=== PATIENT | female | born 1960 | race Caucasian/White ===

== ENCOUNTER 2019-04-04 06:30 | Inpatient (IN) | payer BC ==
--- NOTE | 2019-03-31 14:43 | PREOPHP ---
DATE OF ADMISSION: 04/04/2019 REASON FOR CONSULTATION: Consultation requested by Dr. Jessie Montelongo for medical evaluation and patel giovany of a 59-year-old woman about to undergo surgery. Thank you, Dr. Montelongo, for participating and allowing us to participate in the care of our patient. HISTORY OF PRESENT ILLNESS: Pamella Leyva a 59-year-old woman, issues with her back and right hip is c urrently being admitted for correction of her right hip problem. In terms of her past medical and sanchez rgical history, she has had no medical hospitalizations to speak of in the past, has had the followin g surgical procedures, carpal tunnel release on the right many years ago, cyst removal. Also had D a nd C and more recently had a hysteroscopy and D and C, had gastric band placed laparoscopically, had laparoscopic surgery for endometriosis and excision of a lipoma and had a knee surgery and reconstruc tion of the left knee and had a tonsillectomy many years ago. ALLERGIES: SHE IS CURRENTLY ALLERGIC TO: 1. SULFA. 2. PENICILLIN. 3. KEFLEX. 4. CECLOR. MEDICATIONS: Include the followin. Levothyroxine 150 mcg daily in the morning. 2. Doxycycline 100 mg daily q.a.m. 3. Duloxetine 30 mg 3 daily 2:00 a.m., 1:00 p.m. 4. Metformin 500 mg 1 b.i.d. 5. Spironolactone 50 mg b.i.d. 6. Alprazolam XR 1 mg b.i.d. 7. Lyrica 50 mg t.i.d. 8. Montelukast 10 mg at bedtime. 9. Benazepril 20 mg at bedtime. 10. Alprazolam 0.5 mg 1 to 2 p.o. b.i.d. p.r.n. 11. Desipramine 20 mg at bedtime. 12. Mucinex XR 1200 mg 2 a day. 13. Zyrtec 10 mg 1 to 2 a day. 14. ProAir inhaler as needed. 15. Hydrocodone. 16. Rizatriptan 10 mg p.r.n. SOCIAL HISTORY: The patient is single, has no children. She does not smoke or drink alcohol or coff ee and has no difficulty sleeping at night. FAMILY HISTORY: Father of Parkinson's disease in his 70s. Mother is 83, has had thyroid cancer , other than that has been relatively healthy. Two sisters are in good health. There is a family hi story of diabetes and heart, as well as cancer and hypertension with history of strokes and Parkinson 's disease as mentioned above. REVIEW OF SYSTEMS HEENT: Periodic headache, tension and sinus and migraine. CARDIORESPIRATORY: Denies any chest pain or shortness of breath. GASTROINTESTINAL: No melena or hematemesis. Does have irritable bowel syndrome. GENITOURINARY: No urgency or frequency. GYNECOLOGIC: Postmenopause. Up to date. MUSCULOSKELETAL: Positive for right hip pain. NEUROPSYCHIATRIC: Unremarkable. GENERAL HEALTH: As above. PHYSICAL EXAMINATION: VITAL SIGNS: The patient's blood pressure was 130/62, pulse was 76 and regular, respirations were 18 , temperature was 98.3, height 5 feet 3.75 inches and weight 216 pounds. Last weight obtained on [facility] ie this month in March was 204 pounds. GENERAL: The patient was noted to be a well-developed, well-nourished female, alert and cooperative, in no apparent acute distress, oriented to time, place, and person. HEAD, EARS, EYES, NOSE AND THROAT: Head was atraumatic. Eyes: Pupils were equal, reacted to light and accommodation. Fundi were benign. Tympanic membranes were unremarkable. Nose was negative. Mo uth was unremarkable. Fair oral hygiene was present. NECK: Supple without any rigidity. Trachea was midline. Thyroid was within normal limits. A small scar was noted in the anterior cervical area. BACK: Unremarkable. CHEST: Symmetrical. BREASTS AND AXILLARY: Did not reveal any obvious masses. LUNGS: Clear. HEART: Examination of the heart. PMI is fifth intercostal space at the midclavicular line. A regul ar sinus rhythm was noted. No significant murmurs, rubs, or gallops being elicited. ABDOMEN: Soft, good bowel sounds were noted. Area of a lap band on the left side was palpable. No significant organomegaly, masses, or tenderness. GENITALIA AND PELVIRECTAL: Up to date per wax pumper. EXTREMITIES: Did not reveal any clubbing, edema or cyanosis. Limitation of motion was noted on the right hip. Peripheral pulses were physiologic. SKIN: Moist and warm without any eruptions. No gross lymphadenopathy was noted. NEUROLOGIC: Grossly intact. IMPRESSION: 1. Right hip and buttock pain. 2. Lumbar disk disease. 3. Hypothyroidism. 4. Lumbar disk disease. 5. Degenerative joint disease. 6. Metabolic syndrome. 7. Chronic pain syndrome. 8. Stable health. LABORATORY DATA: Review of laboratory and other data revealed the following: The patient's chemistr y panel including electrolytes, glucose, BUN, creatinine, calcium and uric acid, protein, liver funct ion tests, serum iron, hemoglobin A1c were normal. CBC, UA, PT and PTT were normal as well. The pat ient's EKG revealed a sinus tachycardia but other than that was normal and the patient's chest x-ray did not reveal any acute infiltrates nor were there any acute cardiopulmonary changes noted. DISCUSSION: Dr. Montelongo, I see no contraindications to patient undergoing current proposed surgery u nder desired form of anesthesia. I feel she is a suitable candidate at this particular point in time and we will be more than happy to follow her along with you during her stay at [facility]. Thank you again, Dr. Montelongo, for allowing us to participate in care of this patient. Dictated By: MOIRA GRANADOS MD SS/NTS Conf#: [id number] DID#: [id number] CC: JESSIE MONTELONGO MD;*End*
[2019-04-01 16:54] VITALS: Ht 160.7 cm; Wt 94.0 kg
[~2019-04-04] VITALS: Ht 160.7 cm; Wt 94.0 kg
[2019-04-04] VITALS (24 sets, daily range): BP systolic 93–109; BP diastolic 52–70; PULSE 86–110; RESP 15–21
--- NOTE | 2019-04-04 05:59 | HPN ---
Date/Time of Note Date/Time of Note DATE: 04/04/19 TIME: 05:58 Interval H&P Admission Note Pt. seen H&P reviewed: No system changes JESSIE ALLEN MD Apr 04, 2019 05:59
--- NOTE | 2019-04-04 06:00 | OPR ---
Date/Time of Note Date/Time of Note DATE: 04/04/19 TIME: 05:59 Operative Report Procedure Date: Apr 04, 2019 Preoperative Diagnosis Right hip abductor tear Postoperative Diagnosis 1. Right hip massive gluteus medius tear 2. Right hip severe trochanteric bursitis Operation/Procedure Performed 1. Right hip open gluteus medius repair 2. Right hip open trochanteric bursectomy Surgeon see signature line Transmission Systems Operator Wilbert Higgins PA-C Anesthesia Type: general Estimated Blood Loss: 50 - 100 ml's Transfusion none Specimen None Grafts/Implants See op note Complications none Pt Condition Post Procedure: stable Disposition: PACU Procedure Description RESPIRATORY CARE PRACTITIONER SURGEON: Wilbert Higgins PA-C was asked to be present at my request as a result of the complexity associated with this procedure including positioning of the extremity, as well as exposure of the neurovascular structures and protection of those structures. In my opinion, the assistance offered by a medical surgical tech is insufficient and he should be compensated for his time. PROCEDURE IN DETAIL: Following the administration of general endotracheal anesthesia supplemented with a local anesthetic, the patient was then placed in the left lateral decubitus position after carefully turning her. An axillary fold was placed. Sterile prep and drape was then undertaken. A lateral incision was then made over the trochanteric prominence of the right hip directly over the prior incision. The incision was carried through the subcutaneous tissues exposing the iliotibial band, which appeared to be chronically torn and retracted. The IT band was then i mobilized up to the area of the tensor femoris and up to the area proximally at the origin. A severe amount of bursal reactive tissue was then excised and a tear of the gluteus medius with a complete avulsion was noted. A thorough bursectomy was completed with severe bursal reactive tissue being excised. Once the bursectomy was completed, the lateral aspect of the trochanter was then cleared of soft tissue and a bleeding bed was established. Several lateral and posterior osteophytes were removed. The abductor mechanism was investigated. The gluteus minimus appeared to be attached with some mild fraying. However, the medius was completely torn and retracted. The tissue was mobilized and a good amount of solid tissue was noted with a good tendinous edge. A decision was then made to perform a primary repair. At this point two 5.5 mm, double loaded titanium anchors were then impacted into the tuberosity. The sutures were then passed in a mattress fashion through the abductor musculature. This incorporated both the gluteus minimus and gluteus medius tendons. In addition, portion of the gluteus marco a was mobilized anteriorly in order to give it a good vascular bed. The abductor was then reapproximated solidly. The iliotibial band was also closed. This was done using the prior sutures from the suture anchors and tied in a [id number] fashion. The wound was thoroughly irrigated. The wound was then closed in layers and a Prenio for the final cover. This was watertight. Estimated blood loss was procedure was 50 cc. JESSIE ALLEN MD Apr 04, 2019 06:00
[~2019-04-04 06:30] MED LIST: ALBU8.5H8 INH; ALPR0.5T6 PO; BENA20TA4 PO; BUPIVACAINE 0.5% (SDV) 30 ML, morphine SULFATE (PF) 8 MG, EPINEPHrine 0.3 MG, KETOROLAC... IRR SCH; CETI10CA PO; DESI50TA PO; DEXAMETHASONE 1 MG TAB PO ONE; DOXYCYCLINE PO; DULO60CA59 PO; GABAPENTIN 300 MG CAP PO ONE; GUAI120011 PO; LEVO150T87 PO; METF500T24 PO; MONT10TA24 PO; PREG50CA PO; RIZA10TA21 PO; SOD CHLORIDE 0.9% 100 ML, TRANEXAMIC ACID 3,000 MG IRR ONE; SPIR100T4 PO; TRANEXAMIC ACID 1GM/100ML(PMX) 100 ML IVPB ONE; VANCOMYCIN 1 GM (PMX) 250 ML IVPB ONE; [UNRECOGNIZED DRUG - CODE] PO
[2019-04-04] MEDS ORDERED: PHENYLephrine (100 MCG/ML) 10ML SYG ONE (07:00)
--- NOTE | 2019-04-04 08:27 | PREAC ---
Date/Time of Note Date/Time of Note DATE: 04/04/19 TIME: 08:24 Anesthesia Eval and Record Evaluation Time Pre-Procedure Interview DATE: 04/04/19 TIME: 08:24 Age 59 Sex female NPO: 8 hrs Preoperative diagnosis Right Hip Pain Planned procedure Right Hip open Trochateric Bursectomy Past Medical History Past Medical History: Includes Cardio: HTN, Dyslipidemia Endo: Diabetes, Hypothyroid Pulm: Asthma Musculoskeletal: Osteoarthritis Surgery & Anesthesia Issues No known issue Meds Anticoagulation: No Beta Susan within 24 hr: No Reason Beta Susan not given: Pt. not on B-Susan Reported Medications Rizatriptan Benzoate (Rizatriptan Benzoate) 10 Mg Tablet, 10 MG PO BID PRN for MIGRAINE, TAB may repeat after 2 hours, MAX 30 mg/24 hour 04/01/19 Albuterol Sulfate* (Proair HFA*) 8.5 Gm Hfa.aer.ad, 2 PUFF INH Q4, #1 INHALER 04/01/19 Cetirizine Hcl* (Zyrtec*) 10 Mg Capsule, 10 MG PO BID, TAB 04/01/19 Guaifenesin (Mucinex) 1,200 Mg Tab.er.12h, 1200 MG PO BID, TAB 04/01/19 Desipramine Hcl* (Desipramine Hcl*) 50 Mg Tablet, 20 MG PO HS, TAB 04/01/19 Alprazolam* (Alprazolam*) 0.5 Mg Tablet, 0.5 MG PO BID, TAB 04/01/19 Benazepril Hcl* (Benazepril Hcl*) 20 Mg Tablet, 20 MG PO DAILY, #30 TAB 04/01/19 Montelukast Sodium* (Montelukast Sodium*) 10 Mg Tablet, 10 MG PO QHS, #30 TAB 04/01/19 Pregabalin* (Lyrica*) 50 Mg Capsule, 50 MG PO QID, CAP 04/01/19 Alprazolam (Alprazolam XR) 1 Mg Tab.sr.24h, 1 MG PO BID, TAB.SA 04/01/19 Spironolactone* (Spironolactone*) 100 Mg Tablet, 50 MG PO BID, TAB 04/01/19 Metformin Hcl* (Metformin Hcl*) 500 Mg Tablet, 500 MG PO WITH BREAKFAST PRN for BID, #30 TAB 04/01/19 Duloxetine Hcl* (Duloxetine Hcl*) 60 Mg Capsule.dr, 90 MG PO DAILY, #30 CAP 04/01/19 [Doxycycline] No Conflict Check, 100 MG PO DAILY 04/01/19 Levothyroxine Sodium* (Synthroid*) 150 Mcg Tablet, 150 MCG PO BEFORE BREAKFAST, #30 TAB 04/01/19 Current Medications Bupivacaine HCl/ Morphine Sulfate/ Epinephrine/ Ketorolac Tromethamine/ Clonidine/Sodium Chloride/ Vancomycin HCl INTRA-OP IRR ; Start 04/04/19 at 05:30 Meds reviewed: Yes Allergies Coded Allergies: Cephalexin Monohydrate (Verified Allergy, Intermediate, RASH, 04/04/19) Cephalosporins (Verified Allergy, Intermediate, RASH, 04/04/19) Sulfa (Sulfonamide Antibiotics) (Verified Allergy, Intermediate, RASH, 04/04/19) cefaclor (Verified Allergy, Intermediate, RASH, 04/04/19) Penicillins (Verified Allergy, Unknown, RASH, 04/04/19) acetaminophen (Verified Allergy, Unknown, INTOLERANCE, 04/04/19) hydromorphone HCl (Verified Allergy, Unknown, INTOLERANCE, 04/04/19) oxycodone HCl (Verified Allergy, Unknown, INTOLERANCE, 04/04/19) Allergies Reviewed: Yes Labs/Studies Labs Reviewed: Reviewed by anesthesiologist test: N/A Studies: ECG (ST), CXR (WNL) Pre-procedure Exam Airway: Adequate mouth opening, Adequate thyromental dist Mallampati: Mallampati II Teeth: Normal Lung: Normal Heart: Normal ASA Physical Status ASA physical status: 3 Emergency: None Planned Anesthetic General/MAC: ETT Planned Pain Management Parenteral pain med Pre-operative Attestations Prior to commencing anesthesia and surgery, the patient was re-evaluated, there was verification of: *The patient's identity *The results of appropriate recent lab work and preoperative vital signs *The above evaluation not changing prior to induction *Anesthetic plan, risk benefits, alternative and complications discussed with patient/family; questions answered; patient/family understands, accepts and wishes to proceed. RUTH EWING MD Apr 04, 2019 08:27
[2019-04-04] MEDS ORDERED: METF500T24 PO (08:28)
[2019-04-04] MEDS ORDERED: BENA20TA4 PO (08:28)
[2019-04-04] MEDS ORDERED: DOXY100T20 PO (08:30)
[2019-04-04] MEDS ORDERED: SPIR50TA PO (08:30)
[2019-04-04] MEDS ORDERED: ROCURONIUM 50 MG INJ ONE (08:36)
[2019-04-04] MEDS ORDERED: MIDAZOLAM 1 MG/ML 2 ML INJ ONE (08:36)
[2019-04-04] MEDS ORDERED: PROPOFOL 20 ML ONE ×2 (08:36→11:31)
[2019-04-04] MEDS ORDERED: FENTAnyl 50 MCG/ML VIAL ONE (08:36)
[2019-04-04] MEDS ORDERED: METOCLOPRAMIDE 10 MG INJ IV PRN (09:00)
[2019-04-04] MEDS ORDERED: MEPERIDINE 25 MG INJ IV PRN ×2 (09:00→12:30)
[2019-04-04] MEDS ORDERED: DIPHENHYDRAMINE 50 MG INJ IV PRN ×3 (09:00→12:30)
[2019-04-04] MEDS ORDERED: EPHEDrine 25 MG/5 ML SYG IV PRN (09:00)
[2019-04-04] MEDS ORDERED: ONDANSETRON 4 MG INJ IV PRN (09:00)
[2019-04-04] MEDS ORDERED: hydrALAzine 20 MG INJ IV PRN (09:00)
[2019-04-04] MEDS ORDERED: LABETALOL HCL 20MG INJ IV PRN (09:00)
[2019-04-04] MEDS ORDERED: FENTAnyl 50 MCG/ML VIAL IV PRN ×2 (09:00)
[2019-04-04] MEDS ORDERED: ONDANSETRON 4 MG INJ ONE ×2 (11:01→11:58)
[2019-04-04] MEDS ORDERED: FAMOTIDINE 20 MG INJ ONE (11:01)
[2019-04-04] MEDS ORDERED: METOCLOPRAMIDE 10 MG INJ ONE (11:01)
[2019-04-04] MEDS ORDERED: DEXAMETHASONE 4 MG/ML 5 ML INJ ONE (11:01)
[2019-04-04] MEDS ORDERED: POLYMYXIN/BACITRACIN 1L IRRIG IRR ONE (11:13)
[2019-04-04] MEDS ORDERED: SUGAMMADEX SODIUM 200 MG/2 ML VIAL IV ONE (11:31)
[2019-04-04] MEDS ORDERED: KETOROLAC 30 MG INJ ONE (11:31)
[2019-04-04] MEDS ORDERED: MAGNESIUM HYDROXIDE 30ML CUP PO PRN (12:00)
[2019-04-04] MEDS ORDERED: RIZATRIPTAN BENZOATE 10 MG PO PRN (12:00)
[2019-04-04] MEDS ORDERED: NACL 0.9% 3 ML SYG IV SCH (12:00)
[2019-04-04] MEDS ORDERED: HYDROmorphONE 1 MG/ML SYG IV PRN (12:00)
[2019-04-04] MEDS ORDERED: oxyCODONE 5 MG TAB PO PRN (12:00)
[2019-04-04] MEDS: FENTAnyl 50 MCG/ML VIAL IV PRN ×2 (12:13→12:24)
[2019-04-04] MEDS ORDERED: LORAZEPAM 2 MG INJ IV PRN (12:30)
[2019-04-04] MEDS: ALBUTEROL HFA 8 GM INHALER INH SCH ×3 (13:00→21:00)
[2019-04-04] MEDS ORDERED: GLUCOSE GEL 15 GRAM TUBE PO PRN ×4 (13:00→13:30)
[2019-04-04] MEDS ORDERED: GLUCAGON 1 MG INJ IM PRN ×2 (13:00→13:30)
[2019-04-04] MEDS ORDERED: GLUCOSE GEL 15 GRAM TUBE BUCCAL PRN ×2 (13:00→13:30)
[2019-04-04] MEDS ORDERED: PREGABALIN 25 MG CAP PO SCH (13:00)
[2019-04-04] MEDS ORDERED: DEXTROSE 50% 50 ML SYRINGE IV PRN ×4 (13:00→13:30)
[2019-04-04] MEDS: LACTATED RINGER'S 1,000 ML IV SCH ×2 (13:06→21:34)
[2019-04-04] MEDS: DEXAMETHASONE 2 MG TAB PO SCH ×2 (13:43→18:30)
[2019-04-04] MEDS: ONDANSETRON 4 MG INJ IV PRN ×2 (14:04→20:05)
[2019-04-04] MEDS: morphine 4 MG/ML VIAL IV PRN ×2 (14:05→19:38)
--- NOTE | 2019-04-04 14:20 | PDOCDIS ---
Discharge Instructions DIAGNOSIS Discharge Diagnosis Abductor tear CONDITION [id number] Patient Condition: Ganor5t Good HOME CARE INSTRUCTIONS: [id number] Diet Instructions: [id number] Regular ACTIVITY: [id number] Activity Restrictions: [id number] Slowly Increase Activity Keep Limb Elevated [id number] Bathing Restrictions: [id number] Shower FOLLOW UP/APPOINTMENTS Follow-up Plan 2 weeks in the office SCHOOL/WORK RELEASE May return to School/Work with: With Restrictions School/Work Release Comment: Foot flat weightbearing for 4 weeks JESSIE ALLEN MD Apr 04, 2019 14:20
--- NOTE | 2019-04-04 15:26 | CONS ---
Assessment/Plan Assessment/Plan Problems: (1) Hidradenitis suppurativa Status: Chronic Comment: Cont. metformin, spironolactone, doxycycline (2) Androgen excess Status: Chronic Comment: Cont. metformin, doxycycline (3) Hypercoagulable state Status: Chronic Comment: heme to evaluate and decide if any anticoagulation is necessary (4) Hypothyroidism Status: Chronic Comment: Cont. LT4 daily (5) Major depressive disorder, recurrent, in full remission Status: Chronic Comment: Cont. duloxetine, desipramine (6) Anxiety disorder Status: Chronic Comment: Cont. long acting alprazolam w/ short-acting alprazolam prn (7) Allergic rhinitis Status: Chronic Comment: Cont. montelukast, cetirizine, mucinex (8) Essential (primary) hypertension Status: Chronic Comment: cont. benazepril (9) Mild intermittent asthma, uncomplicated Status: Chronic Comment: Cont. montelukast, albuterol prn (10) Low back pain Status: Chronic Comment: Cont. lyrica 50 mg po qid (11) Tear of gluteus medius tendon Status: Resolved Comment: per primary team (12) Trochanteric bursitis of right hip Status: Resolved Comment: per primary team (13) Aftercare following surgery of the musculoskeletal system Status: Acute Comment: Doing well POD#0. Defer to primary team for pain management and PT. Will cont. home meds as above and monitor for any subsequent medical problems and treat should they arise. Will cont. to follow w/ you. Consultation Date/Type/Reason Admit Date/Time Apr 04, 2019 at 06:30 Date of Consultation: Apr 04, 2019 Type of Consult Medicine Reason for Consultation Medical Management Requesting Provider: JESSIE ALLEN MD Date/Time of Note DATE: 04/04/19 TIME: 15:14 Hx of Present Illness 59 y/o C F w/ h/o hypothyroidism, hidradenitis suppurativa/androgen excess, anxiety, depression, allergic rhinitis, asthma, HTN, lumbar disease in [facility] until 1 1/2 y. ago when she stepped on a rubber dog toy and slipped and fell landing on R hip. Has had pain in hip and radiating down leg since then. Sought care of Dr. Allen who took her for scheduled gluteus medius repair and trochanteric bursectomy today. POD#0 and feels well. Constitutional: no complaints, improved Eyes: no complaints ENT: no complaints Respiratory: no complaints Cardiovascular: no complaints Gastrointestinal: no complaints Genitourinary: no complaints Musculoskeletal: no complaints (on morphine and pain-free at this time) Neurologic: no complaints Past Medical History Medical History: hypertension, hypothyroid, other (hidradenitis suppurativa/androgen excess, anxiety, depression, allergic rhinitis, lumbar disease) Home Meds Reported Medications Doxycycline Hyclate* (Doxycycline Hyclate*) 100 Mg Tablet.dr, 100 MG PO DAILY, TAB 04/04/19 Spironolactone* (Aldactone*) 50 Mg Tablet, 50 MG PO BID, #60 TAB 04/04/19 Metformin Hcl* (Metformin Hcl*) 500 Mg Tablet, 500 MG PO WITH BREAKFAST DINNE, #60 TAB 04/04/19 Benazepril Hcl* (Benazepril Hcl*) 20 Mg Tablet, 20 MG PO QHS, #60 TAB 04/04/19 Rizatriptan Benzoate (Rizatriptan Benzoate) 10 Mg Tablet, 10 MG PO BID PRN for MIGRAINE, TAB may repeat after 2 hours, MAX 30 mg/24 hour 04/01/19 Albuterol Sulfate* (Proair HFA*) 8.5 Gm Hfa.aer.ad, 2 PUFF INH Q4, #1 INHALER 04/01/19 Cetirizine Hcl* (Zyrtec*) 10 Mg Capsule, 10 MG PO BID, TAB 04/01/19 Guaifenesin (Mucinex) 1,200 Mg Tab.er.12h, 1200 MG PO BID, TAB 04/01/19 Desipramine Hcl* (Desipramine Hcl*) 50 Mg Tablet, 20 MG PO HS, TAB 04/01/19 Alprazolam* (Alprazolam*) 0.5 Mg Tablet, 0.5 MG PO BID, TAB 04/01/19 Montelukast Sodium* (Montelukast Sodium*) 10 Mg Tablet, 10 MG PO QHS, #30 TAB 04/01/19 Pregabalin* (Lyrica*) 50 Mg Capsule, 50 MG PO QID, CAP 04/01/19 Alprazolam (Alprazolam XR) 1 Mg Tab.sr.24h, 1 MG PO BID, TAB.SA 04/01/19 Duloxetine Hcl* (Duloxetine Hcl*) 60 Mg Capsule.dr, 90 MG PO DAILY, #30 CAP 04/01/19 Levothyroxine Sodium* (Synthroid*) 150 Mcg Tablet, 150 MCG PO BEFORE BREAKFAST, #30 TAB 04/01/19 Discontinued Reported Medications Benazepril Hcl* (Benazepril Hcl*) 20 Mg Tablet, 20 MG PO DAILY, #30 TAB 04/01/19 Spironolactone* (Spironolactone*) 100 Mg Tablet, 50 MG PO BID, TAB 04/01/19 Metformin Hcl* (Metformin Hcl*) 500 Mg Tablet, 500 MG PO WITH BREAKFAST PRN for BID, #30 TAB 04/01/19 [Doxycycline] No Conflict Check, 100 MG PO DAILY 04/01/19 Medications Current Medications Albuterol (Ventolin Hfa) 2 puff Q4 INH ; Start 04/04/19 at 13:00 Alprazolam (Xanax) 0.5 mg BID PO ; Start 04/04/19 at 21:00 Benazepril HCl (Lotensin) 20 mg QHS PO ; Start 04/04/19 at 21:00 Desipramine HCl (Norpramin) 10 mg HS PO ; Start 04/04/19 at 21:00 Duloxetine HCl (Cymbalta) 90 mg DAILY PO ; Start 04/05/19 at 09:00 Levothyroxine Sodium (Synthroid) 150 mcg BEFORE BREAKFAST PO ; Start 04/05/19 at 07:00 Metformin HCl (Glucophage) 500 mg WITH BREAKFAST DINNE PO ; Start 04/04/19 at 17:55 Montelukast Sodium (Singulair) 10 mg QHS PO ; Start 04/04/19 at 21:00 Spironolactone (Aldactone) 50 mg BID PO ; Start 04/04/19 at 21:00 Loratadine (Claritin) 10 mg DAILY PO ; Start 04/05/19 at 09:00 Guaifenesin (Mucinex) 1,200 mg BID PO ; Start 04/04/19 at 21:00 Miscellaneous Information 10 mg BID PRN PO MIGRAINE; Start 04/04/19 at 12:00; Status UNV Lactated Ringer's 1,000 ml @ 100 mls/hr Q10H IV Last administered on 04/04/19at 13:06; Admin Dose 100 MLS/HR; Start 04/04/19 at 11:34 Vancomycin HCl 100 ml @ 100 mls/hr Q12H IVPB ; Start 04/04/19 at 20:00; Stop 04/05/19 at 08:59 Senna/Docusate Sodium (Senokot-S) 1 tab BID PO ; Start 04/04/19 at 21:00 Simethicone (Mylicon) 80 mg TID PRN PO .GAS; Start 04/04/19 at 12:00 Magnesium Hydroxide (Milk Of Mag) 30 ml BID PRN PO .CONSTIPATION; Start 04/04/19 at 12:00 Magnesium Hydroxide (Milk Of Mag) 30 ml HS PO ; Start 04/06/19 at 21:00 Dexamethasone (Decadron) 2 mg Q6 PO Last administered on 04/04/19at 13:43; Admin Dose 2 MG; Start 04/04/19 at 12:00; Stop 04/05/19 at 06:01 Oxycodone HCl (Roxicodone) 15 mg Q4H PRN PO .PAIN; Start 04/04/19 at 12:00 Oxycodone HCl (Roxicodone) 10 mg Q4H PRN PO .PAIN; Start 04/04/19 at 12:00 Oxycodone HCl (Roxicodone) 5 mg Q4H PRN PO .PAIN; Start 04/04/19 at 12:00 Hydromorphone HCl (Dilaudid) 1 mg Q4H PRN IV .BREAKTHROUGH PAIN; Start 04/04/19 at 12:00 Ondansetron HCl (Zofran Inj) 4 mg Q6H PRN IV NAUSEA/VOMITING Last administered on 04/04/19at 14:04; Admin Dose 4 MG; Start 04/04/19 at 12:00 Diphenhydramine HCl (Benadryl) 25 mg Q6H PRN IV .PRURITUS; Start 04/04/19 at 12:00 IV Flush (NS 3 ml) 3 ml per protocol IV ; Start 04/04/19 at 12:00 Aspirin (Ecotrin) 325 mg DAILY PO ; Start 04/05/19 at 09:00 Lorazepam (Ativan) 1 mg PACU ORDER PRN IV .ANXIETY; Start 04/04/19 at 12:30; Stop 04/04/19 at 16:30 Miscellaneous Information 1 ea NOTE XX ; Start 04/04/19 at 13:00 Glucose (Glutose) 15 gm Q15M PRN PO DECREASED GLUCOSE; Start 04/04/19 at 13:00 Glucose (Glutose) 22.5 gm Q15M PRN PO DECREASED GLUCOSE; Start 04/04/19 at 13:00 Dextrose (D50w Syringe) 25 ml Q15M PRN IV DECREASED GLUCOSE; Start 04/04/19 at 13:00 Dextrose (D50w Syringe) 50 ml Q15M PRN IV DECREASED GLUCOSE; Start 04/04/19 at 13:00 Glucagon (Glucagen) 1 mg Q15M PRN IM DECREASED GLUCOSE; Start 04/04/19 at 13:00 Glucose (Glutose) 15 gm Q15M PRN BUCCAL DECREASED GLUCOSE; Start 04/04/19 at 13:00 Morphine Sulfate (morphine) 3 mg Q3H PRN IV SEVERE PAIN LEVEL 7-10 Last administered on 04/04/19at 14:05; Admin Dose 3 MG; Start 04/04/19 at 13:00 Miscellaneous Information 1 ea NOTE XX ; Start 04/04/19 at 13:30 Glucose (Glutose) 15 gm Q15M PRN PO DECREASED GLUCOSE; Start 04/04/19 at 13:30 Glucose (Glutose) 22.5 gm Q15M PRN PO DECREASED GLUCOSE; Start 04/04/19 at 13:30 Dextrose (D50w Syringe) 25 ml Q15M PRN IV DECREASED GLUCOSE; Start 04/04/19 at 13:30 Dextrose (D50w Syringe) 50 ml Q15M PRN IV DECREASED GLUCOSE; Start 04/04/19 at 13:30 Glucagon (Glucagen) 1 mg Q15M PRN IM DECREASED GLUCOSE; Start 04/04/19 at 13:30 Glucose (Glutose) 15 gm Q15M PRN BUCCAL DECREASED GLUCOSE; Start 04/04/19 at 13:30 Doxycycline Hyclate (Vibramycin) 100 mg DAILY PO ; Start 04/05/19 at 09:00; Status UNV Pregabalin (Lyrica) 50 mg QID PO ; Start 04/04/19 at 17:00 Allergies: Coded Allergies: Cephalexin Monohydrate (Verified Allergy, Intermediate, RASH, 04/04/19) Cephalosporins (Verified Allergy, Intermediate, RASH, 04/04/19) Sulfa (Sulfonamide Antibiotics) (Verified Allergy, Intermediate, RASH, 04/04/19) cefaclor (Verified Allergy, Intermediate, RASH, 04/04/19) Penicillins (Verified Allergy, Unknown, RASH, 04/04/19) acetaminophen (Verified Allergy, Unknown, INTOLERANCE, 04/04/19) hydromorphone HCl (Verified Allergy, Unknown, INTOLERANCE, 04/04/19) oxycodone HCl (Verified Allergy, Unknown, INTOLERANCE, 04/04/19) Past Surgical History Past Surgical Hx: other (carpal tunnel release, cyst removal, D&C, hysteroscopy, gastric lap band, laparoscopic endometriectomy, lipomectomy, knee reconsctruction, T&A) Family History Significant Family History: heart disease, cancer (thyroid), diabetes, hypertension, vascular disease (stroke), other (Parkinson's) Social History single, no children Alcohol Use: none Smoking Status: Never smoker Drug Use: none Exam/Review of Systems Exam Vitals VS - Last 72 Hours, by Label Date Temp Pulse Resp B/P (MAP) Pulse Ox O2 O2 Flow FiO2 Time Delivery Rate 04/04/19 98.0 91 18 103/62 100 Nasal 2.0 15:00 (76) Cannula 04/04/19 98.0 93 18 99/60 (73) 100 Nasal 2.0 14:30 Cannula 04/04/19 98.0 92 18 93/57 (69) 100 Nasal 2.0 14:00 Cannula 04/04/19 97.9 13:54 04/04/19 98.0 92 18 100/70 100 Nasal 2.0 13:45 (80) Cannula 04/04/19 98.0 94 18 98/58 (71) 100 Nasal 2.0 13:30 Cannula 04/04/19 98.0 92 18 102/60 100 Nasal 2.0 13:15 (74) Cannula 04/04/19 98.0 95 18 108/60 100 Nasal 2.0 13:00 (76) Cannula 04/04/19 Nasal 2.0 13:00 Cannula 04/04/19 88 21 105/60 98 Nasal 2.0 12:55 (75) Cannula 04/04/19 98.1 90 18 100/62 99 Nasal 2.0 12:50 (75) Cannula 04/04/19 92 21 105/62 98 Nasal 2.0 12:45 (76) Cannula 04/04/19 92 19 100/61 99 Nasal 2.0 12:40 (74) Cannula 04/04/19 92 20 99/61 (74) 97 Nasal 2.0 12:35 Cannula 04/04/19 90 18 101/65 96 Nasal 2.0 12:30 (77) Cannula 04/04/19 90 20 103/55 97 Nasal 2.0 12:25 (71) Cannula 04/04/19 94 19 100/52 89 Nasal 2.0 12:20 (68) Cannula 04/04/19 90 15 94/54 (67) 100 Nasal 2.0 12:14 Cannula 04/04/19 94 20 100/52 89 Nasal 2.0 12:09 (68) Cannula 04/04/19 98.0 94 19 106/59 100 Nasal 2.0 12:04 (75) Cannula 04/04/19 97.3 104 16 109/61 99 Room Air 08:52 (77) Vital Signs Date Temp Pulse Resp B/P (MAP) Pulse Ox O2 O2 Flow FiO2 Time Delivery Rate 04/04/19 98.0 91 18 103/62 100 Nasal 2.0 15:00 (76) Cannula Constitutional: alert, oriented, obese Psych: no complaints, nl mood/affect Eyes: nl conjunctiva, EOMI, nl lids, nl sclera, PERRL ENMT: nl external ears & nose, mucosa pink and moist Neck: supple, non-tender; No bruits, No masses, No thyromegaly Respiratory: clear to auscultation, normal air movement Cardiovascular: regular rate and rhythm, nl pulses; No edema, No murmurs/extra sounds, No rub Gastrointestinal: soft, nl liver, spleen, non-tender, bowel sounds; No mass, No rebound or guarding Musculoskeletal: nl extremities to inspection Extremities: normal pulses; No cyanosis, No clubbing, No edema Neurological: CYCLE REPAIRER II-XII intact, nl mental status, nl speech, nl strength Medications Medication Current Medications Albuterol (Ventolin Hfa) 2 puff Q4 INH ; Start 04/04/19 at 13:00 Alprazolam (Xanax) 0.5 mg BID PO ; Start 04/04/19 at 21:00 Benazepril HCl (Lotensin) 20 mg QHS PO ; Start 04/04/19 at 21:00 Desipramine HCl (Norpramin) 10 mg HS PO ; Start 04/04/19 at 21:00 Duloxetine HCl (Cymbalta) 90 mg DAILY PO ; Start 04/05/19 at 09:00 Levothyroxine Sodium (Synthroid) 150 mcg BEFORE BREAKFAST PO ; Start 04/05/19 at 07:00 Metformin HCl (Glucophage) 500 mg WITH BREAKFAST DINNE PO ; Start 04/04/19 at 17:55 Montelukast Sodium (Singulair) 10 mg QHS PO ; Start 04/04/19 at 21:00 Spironolactone (Aldactone) 50 mg BID PO ; Start 04/04/19 at 21:00 Loratadine (Claritin) 10 mg DAILY PO ; Start 04/05/19 at 09:00 Guaifenesin (Mucinex) 1,200 mg BID PO ; Start 04/04/19 at 21:00 Miscellaneous Information 10 mg BID PRN PO MIGRAINE; Start 04/04/19 at 12:00; Status UNV Lactated Ringer's 1,000 ml @ 100 mls/hr Q10H IV Last administered on 04/04/19at 13:06; Admin Dose 100 MLS/HR; Start 04/04/19 at 11:34 Vancomycin HCl 100 ml @ 100 mls/hr Q12H IVPB ; Start 04/04/19 at 20:00; Stop 04/05/19 at 08:59 Senna/Docusate Sodium (Senokot-S) 1 tab BID PO ; Start 04/04/19 at 21:00 Simethicone (Mylicon) 80 mg TID PRN PO .GAS; Start 04/04/19 at 12:00 Magnesium Hydroxide (Milk Of Mag) 30 ml BID PRN PO .CONSTIPATION; Start 04/04/19 at 12:00 Magnesium Hydroxide (Milk Of Mag) 30 ml HS PO ; Start 04/06/19 at 21:00 Dexamethasone (Decadron) 2 mg Q6 PO Last administered on 04/04/19at 13:43; Admin Dose 2 MG; Start 04/04/19 at 12:00; Stop 04/05/19 at 06:01 Oxycodone HCl (Roxicodone) 15 mg Q4H PRN PO .PAIN; Start 04/04/19 at 12:00 Oxycodone HCl (Roxicodone) 10 mg Q4H PRN PO .PAIN; Start 04/04/19 at 12:00 Oxycodone HCl (Roxicodone) 5 mg Q4H PRN PO .PAIN; Start 04/04/19 at 12:00 Hydromorphone HCl (Dilaudid) 1 mg Q4H PRN IV .BREAKTHROUGH PAIN; Start 04/04/19 at 12:00 Ondansetron HCl (Zofran Inj) 4 mg Q6H PRN IV NAUSEA/VOMITING Last administered on 04/04/19at 14:04; Admin Dose 4 MG; Start 04/04/19 at 12:00 Diphenhydramine HCl (Benadryl) 25 mg Q6H PRN IV .PRURITUS; Start 04/04/19 at 12:00 IV Flush (NS 3 ml) 3 ml per protocol IV ; Start 04/04/19 at 12:00 Aspirin (Ecotrin) 325 mg DAILY PO ; Start 04/05/19 at 09:00 Lorazepam (Ativan) 1 mg PACU ORDER PRN IV .ANXIETY; Start 04/04/19 at 12:30; Stop 04/04/19 at 16:30 Miscellaneous Information 1 ea NOTE XX ; Start 04/04/19 at 13:00 Glucose (Glutose) 15 gm Q15M PRN PO DECREASED GLUCOSE; Start 04/04/19 at 13:00 Glucose (Glutose) 22.5 gm Q15M PRN PO DECREASED GLUCOSE; Start 04/04/19 at 13:00 Dextrose (D50w Syringe) 25 ml Q15M PRN IV DECREASED GLUCOSE; Start 04/04/19 at 13:00 Dextrose (D50w Syringe) 50 ml Q15M PRN IV DECREASED GLUCOSE; Start 04/04/19 at 13:00 Glucagon (Glucagen) 1 mg Q15M PRN IM DECREASED GLUCOSE; Start 04/04/19 at 13:00 Glucose (Glutose) 15 gm Q15M PRN BUCCAL DECREASED GLUCOSE; Start 04/04/19 at 13:00 Morphine Sulfate (morphine) 3 mg Q3H PRN IV SEVERE PAIN LEVEL 7-10 Last administered on 04/04/19at 14:05; Admin Dose 3 MG; Start 04/04/19 at 13:00 Miscellaneous Information 1 ea NOTE XX ; Start 04/04/19 at 13:30 Glucose (Glutose) 15 gm Q15M PRN PO DECREASED GLUCOSE; Start 04/04/19 at 13:30 Glucose (Glutose) 22.5 gm Q15M PRN PO DECREASED GLUCOSE; Start 04/04/19 at 13:30 Dextrose (D50w Syringe) 25 ml Q15M PRN IV DECREASED GLUCOSE; Start 04/04/19 at 13:30 Dextrose (D50w Syringe) 50 ml Q15M PRN IV DECREASED GLUCOSE; Start 04/04/19 at 13:30 Glucagon (Glucagen) 1 mg Q15M PRN IM DECREASED GLUCOSE; Start 04/04/19 at 13:30 Glucose (Glutose) 15 gm Q15M PRN BUCCAL DECREASED GLUCOSE; Start 04/04/19 at 13:30 Doxycycline Hyclate (Vibramycin) 100 mg DAILY PO ; Start 04/05/19 at 09:00; Status UNV Pregabalin (Lyrica) 50 mg QID PO ; Start 04/04/19 at 17:00 [place] MCFARLAND MD Apr 04, 2019 15:26
[2019-04-04] MEDS: PREGABALIN 50 MG CAP PO SCH ×2 (18:29→21:16)
[2019-04-04] MEDS: metFORMIN 500 MG TAB PO SCH (18:30)
[2019-04-04] MEDS: VANCOMYCIN 500 MG (PMX) 100 ML IVPB SCH (20:10)
[2019-04-04] MEDS: SENNA/DOCUSATE NA (8.6MG/50MG) TAB PO SCH (21:00)
[2019-04-04] MEDS ORDERED: DESIPRAMINE 10 MG PO SCH (21:00)
[2019-04-04] MEDS ORDERED: ALPRAZOLAM 1 MG PO SCH (21:00)
[2019-04-04] MEDS: DESIPRAMINE 10 MG PO SCH (21:00)
[2019-04-04] MEDS: SPIRONOLACTONE 50 MG TAB PO SCH (21:16)
[2019-04-04] MEDS: ALPRAZOLAM 0.5 MG TAB PO SCH (21:17)
[2019-04-04] MEDS: MONTELUKAST 10 MG TAB PO SCH (21:17)
[2019-04-04] MEDS: GUAIFENESIN LA 600 MG TABSR PO SCH (21:20)
[2019-04-04] MEDS: BENAZEPRIL 20 MG TAB PO SCH (21:21)
[2019-04-05] MEDS: DEXAMETHASONE 2 MG TAB PO SCH ×2 (00:10→06:18)
[2019-04-05] MEDS: ALBUTEROL HFA 8 GM INHALER INH SCH ×6 (01:00→21:00)
--- NOTE | 2019-04-05 06:01 | PN ---
Date/Time of Note Date/Time of Note DATE: 04/05/19 TIME: 05:59 Subjective Patient is awake and alert. She has had several issues with regards to the management overall of her care. Overall, she is now doing well and ready to ambulate Objective Vitals Vital Signs Date Temp Pulse Resp B/P (MAP) Pulse Ox O2 O2 Flow FiO2 Time Delivery Rate 04/04/19 98.6 100 20 108/61 96 Nasal 23:35 (77) Cannula 04/04/19 2.0 18:00 Intake and Output 04/04/19 04/04/19 04/05/19 1515:00 23:00 07:00 IntakeIntake Total 1450 ml 500 ml 800 ml OutputOutput Total 15 ml BalanceBalance 1435 ml 500 ml 800 ml Wound is clean and dry. She is neurologically intact. There are no signs of DVT. Medications Medications Current Medications Albuterol (Ventolin Hfa) 2 puff Q4 INH ; Start 04/04/19 at 13:00 Alprazolam (Xanax) 0.5 mg BID PO Last administered on 04/04/19at 21:17; Admin Dose 0.5 MG; Start 04/04/19 at 21:00 Benazepril HCl (Lotensin) 20 mg QHS PO Last administered on 04/04/19at 21:21; Admin Dose 20 MG; Start 04/04/19 at 21:00 Duloxetine HCl (Cymbalta) 90 mg DAILY PO ; Start 04/05/19 at 09:00 Levothyroxine Sodium (Synthroid) 150 mcg BEFORE BREAKFAST PO ; Start 04/05/19 at 07:00 Metformin HCl (Glucophage) 500 mg WITH BREAKFAST DINNE PO Last administered on 04/04/19at 18:30; Admin Dose 500 MG; Start 04/04/19 at 17:55 Montelukast Sodium (Singulair) 10 mg QHS PO Last administered on 04/04/19at 21:17; Admin Dose 10 MG; Start 04/04/19 at 21:00 Spironolactone (Aldactone) 50 mg BID PO Last administered on 04/04/19at 21:16; Admin Dose 50 MG; Start 04/04/19 at 21:00 Loratadine (Claritin) 10 mg DAILY PO ; Start 04/05/19 at 09:00 Guaifenesin (Mucinex) 1,200 mg BID PO Last administered on 04/04/19at 21:20; Ad min Dose 1,200 MG; Start 04/04/19 at 21:00 Miscellaneous Information 10 mg BID PRN PO MIGRAINE; Start 04/04/19 at 12:00; Status UNV Lactated Ringer's 1,000 ml @ 100 mls/hr Q10H IV Last administered on 04/04/19at 13:06; Admin Dose 100 MLS/HR; Start 04/04/19 at 11:34 Vancomycin HCl 100 ml @ 100 mls/hr Q12H IVPB Last administered on 04/04/19at 20:10; Admin Dose 100 MLS/HR; Start 04/04/19 at 20:00; Stop 04/05/19 at 08:59 Senna/Docusate Sodium (Senokot-S) 1 tab BID PO ; Start 04/04/19 at 21:00 Simethicone (Mylicon) 80 mg TID PRN PO .GAS; Start 04/04/19 at 12:00 Magnesium Hydroxide (Milk Of Mag) 30 ml BID PRN PO .CONSTIPATION; Start 04/04/19 at 12:00 Magnesium Hydroxide (Milk Of Mag) 30 ml HS PO ; Start 04/06/19 at 21:00 Dexamethasone (Decadron) 2 mg Q6 PO Last administered on 04/05/19at 00:10; Admin Dose 2 MG; Start 04/04/19 at 12:00; Stop 04/05/19 at 06:01 Oxycodone HCl (Roxicodone) 15 mg Q4H PRN PO .PAIN; Start 04/04/19 at 12:00 Oxycodone HCl (Roxicodone) 10 mg Q4H PRN PO .PAIN; Start 04/04/19 at 12:00 Oxycodone HCl (Roxicodone) 5 mg Q4H PRN PO .PAIN; Start 04/04/19 at 12:00 Hydromorphone HCl (Dilaudid) 1 mg Q4H PRN IV .BREAKTHROUGH PAIN; Start 04/04/19 at 12:00 Ondansetron HCl (Zofran Inj) 4 mg Q6H PRN IV NAUSEA/VOMITING Last administered on 04/04/19at 20:05; Admin Dose 4 MG; Start 04/04/19 at 12:00 Diphenhydramine HCl (Benadryl) 25 mg Q6H PRN IV .PRURITUS; Start 04/04/19 at 1 2:00 IV Flush (NS 3 ml) 3 ml per protocol IV ; Start 04/04/19 at 12:00 Aspirin (Ecotrin) 325 mg DAILY PO ; Start 04/05/19 at 09:00 Miscellaneous Information 1 ea NOTE XX ; Start 04/04/19 at 13:00 Glucose (Glutose) 15 gm Q15M PRN PO DECREASED GLUCOSE; Start 04/04/19 at 13:00 Glucose (Glutose) 22.5 gm Q15M PRN PO DECREASED GLUCOSE; Start 04/04/19 at 13:00 Dextrose (D50w Syringe) 25 ml Q15M PRN IV DECREASED GLUCOSE; Start 04/04/19 at 13:00 Dextrose (D50w Syringe) 50 ml Q15M PRN IV DECREASED GLUCOSE; Start 04/04/19 at 13:00 Glucagon (Glucagen) 1 mg Q15M PRN IM DECREASED GLUCOSE; Start 04/04/19 at 13:00 Glucose (Glutose) 15 gm Q15M PRN BUCCAL DECREASED GLUCOSE; Start 04/04/19 at 13:00 Morphine Sulfate (morphine) 3 mg Q3H PRN IV SEVERE PAIN LEVEL 7-10 Last administered on 04/04/19at 19:38; Admin Dose 3 MG; Start 04/04/19 at 13:00 Miscellaneous Information 1 ea NOTE XX ; Start 04/04/19 at 13:30 Glucose (Glutose) 15 gm Q15M PRN PO DECREASED GLUCOSE; Start 04/04/19 at 13:30 Glucose (Glutose) 22.5 gm Q15M PRN PO DECREASED GLUCOSE; Start 04/04/19 at 13:30 Dextrose (D50w Syringe) 25 ml Q15M PRN IV DECREASED GLUCOSE; Start 04/04/19 at 13:30 Dextrose (D50w Syringe) 50 ml Q15M PRN IV DECREASED GLUCOSE; Start 04/04/19 at 13:30 Glucagon (Glucagen) 1 mg Q15M PRN IM DECREASED GLUCOSE; Start 04/04/19 at 13:30 Glucose (Glutose) 15 gm Q15M PRN BUCCAL DECREASED GLUCOSE; Start 04/04/19 at 13:30 Doxycycline Hyclate (Vibramycin) 100 mg DAILY PO ; Start 04/05/19 at 09:00 Pregabalin (Lyrica) 50 mg QID PO Last administered on 04/04/19at 21:16; Admin Dose 50 MG; Start 04/04/19 at 17:00 Desipramine HCl (Norpramin) 20 mg HS PO ; Start 04/04/19 at 21:00 Miscellaneous Information (* Miscellaneous Pharmacy Order) 1 ea BID PO ; Start 04/04/19 at 21:00; Status UNV VTE Prophylaxis Risk score (from Ns)>0 risk: 9 [place] [facility] [place]/Catheters IV Catheter Type: Saline Lock Polo in Place: No Assessment/Plan Assessment/Plan Assessment: Status post abductor repair in a complex medical patient Plan: She will begin physical therapy this morning. We will delineate future care depending on how she does this morning. Certainly, it may be possible for her to go home if appropriate home health can be established. JESSIE ALLEN MD Apr 05, 2019 06:01
[2019-04-05] MEDS: LEVOTHYROXINE 150 MCG TAB PO SCH (06:18)
[2019-04-05] MEDS: LACTATED RINGER'S 1,000 ML IV SCH ×2 (08:00→17:34)
[2019-04-05 08:10] VITALS: BP 106/58; PULSE 87; RESP 20
[2019-04-05] MEDS: VANCOMYCIN 500 MG (PMX) 100 ML IVPB SCH (08:34)
[2019-04-05] MEDS: SPIRONOLACTONE 50 MG TAB PO SCH ×2 (08:34→21:09)
[2019-04-05] MEDS: metFORMIN 500 MG TAB PO SCH ×2 (08:34→17:45)
[2019-04-05] MEDS: GUAIFENESIN LA 600 MG TABSR PO SCH ×2 (08:35→21:10)
[2019-04-05] MEDS: SENNA/DOCUSATE NA (8.6MG/50MG) TAB PO SCH ×2 (08:35→21:00)
[2019-04-05] MEDS: ASPIRIN (EC) 325 MG TAB PO SCH ×2 (08:50→09:00)
[2019-04-05] MEDS: LORATADINE 10 MG TAB PO SCH (08:50)
[2019-04-05] MEDS: DULOXETINE 30 MG CAP DR PO SCH (08:50)
[2019-04-05] MEDS: PREGABALIN 50 MG CAP PO SCH ×4 (08:50→21:23)
[2019-04-05] MEDS: ALPRAZOLAM 0.5 MG TAB PO SCH ×2 (08:51→21:23)
[2019-04-05] MEDS: oxyCODONE 5 MG TAB PO PRN ×3 (08:51→17:10)
[2019-04-05] MEDS: DOXYCYCLINE 100 MG TAB PO SCH (08:51)
[2019-04-05] MEDS: APIXABAN 5 MG TABLET PO SCH ×2 (08:53→21:22)
[2019-04-05] MEDS ORDERED: ALPRAZOLAM 1 MG TAB PO SCH (09:30)
[2019-04-05] MEDS: ALPRAZOLAM 1 MG PO SCH ×2 (11:27→17:44)
[2019-04-05] MEDS ORDERED: RIZATRIPTAN 10 MG PO PRN (12:30)
[2019-04-05 15:08] VITALS: BP 114/64; PULSE 95; RESP 18
--- NOTE | 2019-04-05 16:50 | PAC ---
Date/Time of Note Date/Time of Note DATE: 04/05/19 TIME: 16:50 Post-Anesthesia Notes Post-Anesthesia Note Last documented vital signs Vital Signs Date Temp Pulse Resp B/P (MAP) Pulse Ox O2 O2 Flow FiO2 Time Delivery Rate 04/05/19 98.4 95 18 114/64 98 Nasal 15:08 (81) Cannula 04/05/19 2.0 08:25 Activity: WNL Respiratory function: WNL Cardiovascular function: WNL Mental status: Baseline Pain reasonably controlled: Yes Hydration appropriate: Yes Nausea/Vomiting absent: Yes RUTH EWING MD Apr 05, 2019 16:50
--- NOTE | 2019-04-05 16:58 | OPPN ---
Date/Time of Note Date/Time of Note DATE: 04/05/19 TIME: 16:51 Event Note Yesterday after we transferred The patient to OR and asked her to move to the OR bed while we were trying to help her to move to OR Bed by either assisting her or letting her to move on her own she became psychotic toward the anesthesiologist and the staff and became verbally abusive and was swearing for no reason while everyone in the OR was just trying to help her to move to the OR bed. following the episode we tried to calm her down she was telling everyone to shut up while screaming! shortly after Dr Montelongo was asked to come and talk to her and try to calm her down and address her issues, he offered her to either agree to proceed or we can simply discharge her from the hospital. She finally agreed to proceed, Procedure was done uneventfully and patient was transferred to PACU stable. RUTH EWING MD Apr 05, 2019 16:58
--- NOTE | 2019-04-05 17:00 | CONS ---
DATE OF ADMISSION: 04/04/2019 DATE OF CONSULTATION: 04/05/2019 TYPE OF CONSULTATION: Hematology. PHYSICIAN REQUESTING CONSULTATION: Jan Richmond MD REASON FOR CONSULTATION: Thrombophilia. Dear Dr. Richmond: Thank you very much for asking me to see this very pleasant patient in hematologic consultation. As you recall, I have seen Ms. Leyva in the past. She is a 59-year-old female who has had 2 episodes of ischemic colitis. Each of this has been associ ated with the use of estrogens. The patient has had however no other thromboembolic events and the p atient has had no family history of thrombophilia. The patient has had extensive evaluation in the past for evaluation of thrombophilia. She has been f ound to have an elevated IgM anticardiolipin antibody as well as a positive CHARISSA in the past. The patient has had multiple surgeries in the past, but never had any thromboembolic events. These s urgeries have included lap band surgery as well as a left ACL repair, bilateral carpal tunnel release , removal of benign breast mass. She has also had epidural injections and back surgeries in the past . The patient now has several orthopedic issues including bilateral rotator cuff tears as well as torn left bicipital tendon. The patient has had a recent fall and this resulted in a tear of the gluteus medius muscle on the right. The patient has now been admitted to [facility] and has undergone an open repair of the right gluteus medius as well as a right hip open trochanteric bursectomy. The patient has tolerated procedure well. It is reported that there was only 50 mL of blood loss est imated. PAST MEDICAL PROBLEMS: Include: 1. Anxiety. 2. Carpal tunnel syndrome. 3. Endometriosis. 4. Castillo's disease. 5. Hidradenitis suppurativa. 6. Hypertension. 7. Ischemic colitis. 8. Polycystic ovarian syndrome. 9. Thrombophilia. SURGERIES: Have included carpal tunnel release, ovarian cyst removal, history of dilatation and cure ttage, gastric band placement laparoscopically, hysteroscopy, laparoscopy, meniscectomy and tonsillec mian. PHYSICAL EXAMINATION: GENERAL: Reveals a well-developed, mildly obese female in no acute distress. VITAL SIGNS: Temperature 98.4 orally, pulse 95, respirations 114/64, pulse oximetry 98% on 2 liters. SKIN: No ecchymosis, no petechiae or rashes. HEENT: Normocephalic. No evidence of trauma. The pupils are equal, round, reactive to light and ac commodation. Sclerae are nonicteric. Oral mucosa is moist without lesions. Tongue is well papillat ed. There is no gingival hyperplasia, no hypertrophy of Waldeyer's ring, no mucosa telangiectasias. NECK: Supple. No jugular venous distention or thyroid enlargement. No carotid bruits. CHEST: Clear to auscultation and percussion. No rhonchi, wheezes, rales or rubs. HEART: Regular sinus rhythm. No S3, S4 or murmurs. No rubs. BREASTS: Not examined. ABDOMEN: Obese, but soft. There is no organomegaly, mass or tenderness. No ascites, no hernia defe cts. EXTREMITIES: Decreased range of motion of both shoulders with pain on palpation of the bicipital namrata ove of the left humerus. There are antithrombotic pumps in place bilaterally. NEUROLOGIC: Normal. DISCUSSION: The patient has had 2 episodes of ischemic colitis in the past which seemed to have been related to use of estrogen-containing medications. The patient has also been found to have mild evidence of thrombophilia in the past, although has not had any other thromboembolic events and has no family history of thromboembolic events. It is possible that the patient will be at bed rest or have at least significant decreased activity f or the next week. This will increase the risk of thromboembolic event. I have taken the liberty of initiating prophylactic therapy using apixaban 2.5 mg daily. The patient did have preoperative laboratory performed on 03/28/2019. At that time, the patient had hemoglobin of 12.3 and hematocrit of 41.3. We will monitor these values intermittently. Once again, thank you very much for the opportunity of participating in the medical care of this very pleasant patient. I will be happy to follow this patient with you and assist in her hematologic pierre luation and therapy as indicated. Dictated By: LEE BRAND MD SR/NTS Conf#: [id number] DID#: [id number] CC: JESSIE ALLEN MD;*EndCC*
--- NOTE | 2019-04-05 18:01 | CONS ---
Assessment/Plan Assessment/Plan Problems: (1) Hypothyroidism Status: Chronic Comment: Cont. LT4 daily (2) Major depressive disorder, recurrent, in full remission Status: Chronic Comment: Cont. duloxetine and desipramine (3) Anxiety disorder Status: Chronic Comment: Cont. long-acting alprazolam and IR alprazolam as needed. (4) Essential (primary) hypertension Status: Chronic Comment: Cont. benazepril daily (5) Allergic rhinitis Status: Chronic Comment: Cont. montelukast, cetirizine, mucinex (6) Mild intermittent asthma, uncomplicated Status: Chronic Comment: Cont. montelukast, albuterol prn (7) Migraine without aura and without status migrainosus, not intractable Status: Chronic Comment: Cont. desipramine nightly and triptan prn. (8) Hidradenitis suppurativa Status: Chronic Comment: Cont. metformin, spironolactone, doxycycline (9) Androgen excess Status: Chronic Comment: Cont. metformin, doxycycline (10) Anti-cardiolipin antibody syndrome Status: Chronic Comment: hematology seeing. Started eliquis x 7 days. Con. sequential compression therapy. Risk of DVT low. (11) Low back pain Status: Chronic Comment: Cont. lyrica 50 mg qid (12) Tear of gluteus medius tendon Status: Resolved (13) Trochanteric bursitis of right hip Status: Resolved (14) Aftercare following surgery of the musculoskeletal system Status: Acute Comment: Doing well POD#1. PT and pain control per primary team and going well. Request submitted to ARU. No new medical issues. Will follow with you. Consultation Date/Type/Reason Admit Date/Time Apr 04, 2019 at 06:30 Initial Consult Date 04/04/19 Type of Consult Medicine Reason for Consultation Medical Management Requesting Provider: JESSIE ALLEN MD Date/Time of Note DATE: 04/05/19 TIME: 17:54 24 HR Interval Summary Constitutional: no complaints, improved Detailed Summary Respiratory: no complaints Cardiovascular: no complaints Gastrointestinal: no complaints Genitourinary: no complaints Musculoskeletal: No bone/joint pain (pain well-controlled w/ oxycodone; ambulating w/ PT; may need stay in ARU. ) Neurologic: no complaints Exam/Review of Systems Exam Vitals VS - Last 72 Hours, by Label Date Temp Pulse Resp B/P (MAP) Pulse Ox O2 O2 Flow FiO2 Time Delivery Rate 04/05/19 98.4 95 18 114/64 98 Nasal 15:08 (81) Cannula 04/05/19 Nasal 2.0 08:25 Cannula 04/05/19 97.7 87 20 106/58 99 Nasal 08:10 (74) Cannula 04/04/19 98.6 100 20 108/61 96 Nasal 23:35 (77) Cannula 04/04/19 98.6 110 17 104/59 99 Nasal 19:54 (74) Cannula 04/04/19 98.1 86 18 105/67 99 Nasal 2.0 18:00 (80) Cannula 04/04/19 98.1 88 16 102/66 99 Nasal 2.0 17:00 (78) Cannula 04/04/19 98.1 89 20 100/63 99 Nasal 2.0 16:00 (75) Cannula 04/04/19 98.0 91 18 103/62 100 Nasal 2.0 15:00 (76) Cannula 04/04/19 98.0 93 18 99/60 (73) 100 Nasal 2.0 14:30 Cannula 04/04/19 98.0 92 18 93/57 (69) 100 Nasal 2.0 14:00 Cannula 04/04/19 97.9 13:54 04/04/19 98.0 92 18 100/70 100 Nasal 2.0 13:45 (80) Cannula 04/04/19 98.0 94 18 98/58 (71) 100 Nasal 2.0 13:30 Cannula 04/04/19 98.0 92 18 102/60 100 Nasal 2.0 13:15 (74) Cannula 04/04/19 98.0 95 18 108/60 100 Nasal 2.0 13:00 (76) Cannula 04/04/19 Nasal 2.0 13:00 Cannula 04/04/19 88 21 105/60 98 Nasal 2.0 12:55 (75) Cannula 04/04/19 98.1 90 18 100/62 99 Nasal 2.0 12:50 (75) Cannula 04/04/19 92 21 105/62 98 Nasal 2.0 12:45 (76) Cannula 04/04/19 92 19 100/61 99 Nasal 2.0 12:40 (74) Cannula 04/04/19 92 20 99/61 (74) 97 Nasal 2.0 12:35 Cannula 04/04/19 90 18 101/65 96 Nasal 2.0 12:30 (77) Cannula 04/04/19 90 20 103/55 97 Nasal 2.0 12:25 (71) Cannula 04/04/19 94 19 100/52 89 Nasal 2.0 12:20 (68) Cannula 04/04/19 90 15 94/54 (67) 100 Nasal 2.0 12:14 Cannula 04/04/19 94 20 100/52 89 Nasal 2.0 12:09 (68) Cannula 04/04/19 98.0 94 19 106/59 100 Nasal 2.0 12:04 (75) Cannula 04/04/19 97.3 104 16 109/61 99 Room Air 08:52 (77) Vital Signs Date Temp Pulse Resp B/P (MAP) Pulse Ox O2 O2 Flow FiO2 Time Delivery Rate 04/05/19 98.4 95 18 114/64 98 Nasal 15:08 (81) Cannula 04/05/19 2.0 08:25 Intake and Output 04/04/19 04/04/19 04/05/19 1515:00 23:00 07:00 IntakeIntake Total 1450 ml 500 ml 800 ml OutputOutput Total 15 ml BalanceBalance 1435 ml 500 ml 800 ml Constitutional: alert, oriented, obese Psych: no complaints, nl mood/affect Respiratory: clear to auscultation, normal air movement Cardiovascular: regular rate and rhythm, nl pulses; No edema, No murmurs/extra sounds, No rub Gastrointestinal: soft, nl liver, spleen, non-tender, bowel sounds; No mass, No rebound or guarding Musculoskeletal: nl extremities to inspection Extremities: normal pulses; No cyanosis, No clubbing, No edema Neurological: TUBE OPERATOR II-XII intact, nl mental status, nl speech, nl strength Results Result Diagram: 04/05/19 1659 Results 24hrs Laboratory Tests Test 04/05/19 07:10 04/05/19 16:59 Lab Scanned Report REFERENCE LAB White Blood Count 12.6 H Red Blood Count 3.85 L Hemoglobin 10.7 L Hematocrit 33.8 L Mean Corpuscular Volume 87.8 Mean Corpuscular Hemoglobin 27.8 L Mean Corpuscular Hemoglobin Concent 31.7 L Red Cell Distribution Width 14.7 H Platelet Count 362 Mean Platelet Volume 10.1 Immature Granulocytes % 0.400 Neutrophils % 79.1 H Lymphocytes % 11.6 L Monocytes % 8.6 Eosinophils % 0.1 Basophils % 0.2 Nucleated Red Blood Cells % 0.0 Immature Granulocytes # 0.050 H Neutrophils # 9.9 H Lymphocytes # 1.5 Monocytes # 1.1 H Eosinophils # 0.0 Basophils # 0.0 Nucleated Red Blood Cells # 0.0 Medications Medication Current Medications Albuterol (Ventolin Hfa) 2 puff Q4 INH ; Start 04/04/19 at 13:00 Benazepril HCl (Lotensin) 20 mg QHS PO Last administered on 04/04/19 21:21; Admin Dose 20 MG; Start 04/04/19 at 21:00 Duloxetine HCl (Cymbalta) 90 mg DAILY PO Last administered on 04/05/19 08:50; Admin Dose 90 MG; Start 04/05/19 at 09:00 Levothyroxine Sodium (Synthroid) 150 mcg BEFORE BREAKFAST PO Last administered on 04/05/19 06:18; Admin Dose 150 MCG; Start 04/05/19 at 07:00 Metformin HCl (Glucophage) 500 mg WITH BREAKFAST DINNE PO Last administered on 04/05/19at 17:45; Admin Dose 500 MG; Start 04/04/19 at 17:55 Montelukast Sodium (Singulair) 10 mg QHS PO Last administered on 04/04/19at 21:17; Admin Dose 10 MG; Start 04/04/19 at 21:00 Spironolactone (Aldactone) 50 mg BID PO Last administered on 04/05/19 08:34; Admin Dose 50 MG; Start 04/04/19 at 21:00 Loratadine (Claritin) 10 mg DAILY PO Last administered on 04/05/19 08:50; Admin Dose 10 MG; Start 04/05/19 at 09:00 Guaifenesin (Mucinex) 1,200 mg BID PO Last administered on 04/05/19 08:35; Admin Dose 1,200 MG; Start 04/04/19 at 21:00 Lactated Ringer's 1,000 ml @ 100 mls/hr Q10H IV Last administered on 04/04/19at 13:06; Admin Dose 100 MLS/HR; Start 04/04/19 at 11:34 Senna/Docusate Sodium (Senokot-S) 1 tab BID PO Last administered on 04/05/19at 08:35; Admin Dose 1 TAB; Start 04/04/19 at 21:00 Simethicone (Mylicon) 80 mg TID PRN PO .GAS; Start 04/04/19 at 12:00 Magnesium Hydroxide (Milk Of Mag) 30 ml BID PRN PO .CONSTIPATION; Start 04/04/19 at 12:00 Magnesium Hydroxide (Milk Of Mag) 30 ml HS PO ; Start 04/06/19 at 21:00 Oxycodone HCl (Roxicodone) 15 mg Q4H PRN PO .PAIN; Start 04/04/19 at 12:00 Oxycodone HCl (Roxicodone) 10 mg Q4H PRN PO .PAIN Last administered on 04/05/19at 17:10; Admin Dose 10 MG; Start 04/04/19 at 12:00 Oxycodone HCl (Roxicodone) 5 mg Q4H PRN PO .PAIN; Start 04/04/19 at 12:00 Hydromorphone HCl (Dilaudid) 1 mg Q4H PRN IV .BREAKTHROUGH PAIN; Start 04/04/19 at 12:00 Ondansetron HCl (Zofran Inj) 4 mg Q6H PRN IV NAUSEA/VOMITING Last administered on 04/04/19at 20:05; Admin Dose 4 MG; Start 04/04/19 at 12:00 Diphenhydramine HCl (Benadryl) 25 mg Q6H PRN IV .PRURITUS; Start 04/04/19 at 12:00 IV Flush (NS 3 ml) 3 ml per protocol IV ; Start 04/04/19 at 12:00 Aspirin (Ecotrin) 325 mg DAILY PO ; Start 04/05/19 at 09:00 Morphine Sulfate (morphine) 3 mg Q3H PRN IV SEVERE PAIN LEVEL 7-10 Last administered on 04/04/19at 19:38; Admin Dose 3 MG; Start 04/04/19 at 13:00 Miscellaneous Information 1 ea NOTE XX ; Start 04/04/19 at 13:30 Glucose (Glutose) 15 gm Q15M PRN PO DECREASED GLUCOSE; Start 04/04/19 at 13:30 Glucose (Glutose) 22.5 gm Q15M PRN PO DECREASED GLUCOSE; Start 04/04/19 at 13:30 Dextrose (D50w Syringe) 25 ml Q15M PRN IV DECREASED GLUCOSE; Start 04/04/19 at 13:30 Dextrose (D50w Syringe) 50 ml Q15M PRN IV DECREASED GLUCOSE; Start 04/04/19 at 13:30 Glucagon (Glucagen) 1 mg Q15M PRN IM DECREASED GLUCOSE; Start 04/04/19 at 13:30 Glucose (Glutose) 15 gm Q15M PRN BUCCAL DECREASED GLUCOSE; Start 04/04/19 at 13:30 Doxycycline Hyclate (Vibramycin) 100 mg DAILY PO Last administered on 04/05/19at 08:51; Admin Dose 100 MG; Start 04/05/19 at 09:00 Pregabalin (Lyrica) 50 mg QID PO Last administered on 04/05/19at 17:09; Admin Dose 50 MG; Start 04/04/19 at 17:00 Desipramine HCl (Norpramin) 20 mg HS PO ; Start 04/04/19 at 21:00 Apixaban (Eliquis) 2.5 mg BID PO Last administered on 04/05/19at 08:53; Admin Dose 2.5 MG; Start 04/05/19 at 09:00 Alprazolam (Xanax) 0.5 mg HS PO ; Start 04/05/19 at 21:00 Patient Own Medication 1 ea BID@0630,1700 PO Last administered on 04/05/19at 17:44; Admin Dose 1 EA; Start 04/05/19 at 10:00 Miscellaneous Information Patients own medicat... BID@10,16 XX ; Start 04/05/19 at 16:00 Rizatriptan (Maxalt) 10 mg BID PRN PO MIGRAINE; Start 04/05/19 at 12:30 [place] MCFARLAND MD Apr 05, 2019 18:01
[2019-04-05 20:00] VITALS: BP 135/68; PULSE 96; RESP 20
[2019-04-05] MEDS: MONTELUKAST 10 MG TAB PO SCH (21:09)
[2019-04-05] MEDS: BENAZEPRIL 20 MG TAB PO SCH (21:21)
[2019-04-05] MEDS: DESIPRAMINE 10 MG PO SCH (21:34)
[2019-04-06] MEDS: ALBUTEROL HFA 8 GM INHALER INH SCH ×6 (01:00→21:00)
[2019-04-06] MEDS: LEVOTHYROXINE 150 MCG TAB PO SCH (06:21)
[2019-04-06] MEDS: ALPRAZOLAM 1 MG PO SCH ×2 (06:21→17:11)
[2019-04-06] MEDS: oxyCODONE 5 MG TAB PO PRN ×4 (06:37→19:54)
[2019-04-06] MEDS: ASPIRIN (EC) 325 MG TAB PO SCH (08:18)
[2019-04-06] MEDS: SENNA/DOCUSATE NA (8.6MG/50MG) TAB PO SCH ×2 (08:20→21:00)
[2019-04-06] MEDS: PREGABALIN 50 MG CAP PO SCH ×4 (08:28→21:28)
[2019-04-06] MEDS: APIXABAN 5 MG TABLET PO SCH ×2 (08:28→21:35)
[2019-04-06] MEDS: SPIRONOLACTONE 50 MG TAB PO SCH ×2 (08:28→21:26)
[2019-04-06] MEDS: DULOXETINE 30 MG CAP DR PO SCH (08:28)
[2019-04-06] MEDS: metFORMIN 500 MG TAB PO SCH ×2 (08:28→18:15)
[2019-04-06] MEDS: LORATADINE 10 MG TAB PO SCH (08:29)
[2019-04-06] MEDS: DOXYCYCLINE 100 MG TAB PO SCH (08:29)
[2019-04-06] MEDS: GUAIFENESIN LA 600 MG TABSR PO SCH ×2 (08:29→21:30)
[2019-04-06 08:38] VITALS: BP 115/67; PULSE 88; RESP 18
--- NOTE | 2019-04-06 11:08 | CONS ---
Assessment/Plan Assessment/Plan Problems: (1) Hypothyroidism Status: Chronic Comment: Cont. LT4 daily (2) Major depressive disorder, recurrent, in full remission Status: Chronic Comment: Cont. duloxetine and desipramine (3) Anxiety disorder Status: Chronic Comment: Cont. long-acting alprazolam and prn IR alprazolam for breakthrough (4) Essential (primary) hypertension Status: Chronic Comment: Good control. Cont. benazepril (5) Allergic rhinitis Status: Chronic Comment: Cont. loratadine, montelukast, guaifenesin. (6) Mild intermittent asthma, uncomplicated Status: Chronic Comment: Cont. montelukast, albuterol prn (7) Migraine without aura and without status migrainosus, not intractable Status: Chronic Comment: Cont. rizatriptan prn (8) Hidradenitis suppurativa Status: Chronic Comment: Cont. spironolactone, doxycycline (9) Androgen excess Status: Chronic Comment: cont. spironolactone, metformin (10) Low back pain Status: Chronic Comment: cont. lyrica (11) Anti-cardiolipin antibody syndrome Status: Chronic Comment: Apixiban per heme to prevent DVT (12) Tear of gluteus medius tendon Status: Resolved (13) Trochanteric bursitis of right hip Status: Resolved (14) Aftercare following surgery of the musculoskeletal system Status: Acute Comment: Pt. doing well. Likely ready for d/c per PT. Too high a level for ARU. Pt. requesting hospital bed and w/c and HHPT/OT. Will request through case management. Consultation Date/Type/Reason Admit Date/Time Apr 04, 2019 at 06:30 Initial Consult Date 04/04/19 Type of Consult Medicine Reason for Consultation Medical management Requesting Provider: JESSIE ALLEN MD Date/Time of Note DATE: 04/06/19 TIME: 11:01 24 HR Interval Summary Constitutional: no complaints, improved (denied ARU; wants hospital bed and wheelchair for home) Detailed Summary Respiratory: no complaints Cardiovascular: no complaints Gastrointestinal: no complaints Genitourinary: no complaints Musculoskeletal: no complaints Neurologic: no complaints Exam/Review of Systems Exam Vitals VS - Last 72 Hours, by Label Date Temp Pulse Resp B/P (MAP) Pulse Ox O2 O2 Flow FiO2 Time Delivery Rate 04/06/19 97.4 88 18 115/67 95 Room Air 08:38 (83) 04/05/19 98.3 96 20 135/68 98 Nasal 20:00 (90) Cannula 04/05/19 98.4 95 18 114/64 98 Nasal 15:08 (81) Cannula 04/05/19 Nasal 2.0 08:25 Cannula 04/05/19 97.7 87 20 106/58 99 Nasal 08:10 (74) Cannula 04/04/19 98.6 100 20 108/61 96 Nasal 23:35 (77) Cannula 04/04/19 98.6 110 17 104/59 99 Nasal 19:54 (74) Cannula 04/04/19 98.1 86 18 105/67 99 Nasal 2.0 18:00 (80) Cannula 04/04/19 98.1 88 16 102/66 99 Nasal 2.0 17:00 (78) Cannula 04/04/19 98.1 89 20 100/63 99 Nasal 2.0 16:00 (75) Cannula 04/04/19 98.0 91 18 103/62 100 Nasal 2.0 15:00 (76) Cannula 04/04/19 98.0 93 18 99/60 (73) 100 Nasal 2.0 14:30 Cannula 04/04/19 98.0 92 18 93/57 (69) 100 Nasal 2.0 14:00 Cannula 04/04/19 97.9 13:54 04/04/19 98.0 92 18 100/70 100 Nasal 2.0 13:45 (80) Cannula 04/04/19 98.0 94 18 98/58 (71) 100 Nasal 2.0 13:30 Cannula 04/04/19 98.0 92 18 102/60 100 Nasal 2.0 13:15 (74) Cannula 04/04/19 98.0 95 18 108/60 100 Nasal 2.0 13:00 (76) Cannula 04/04/19 Nasal 2.0 13:00 Cannula 04/04/19 88 21 105/60 98 Nasal 2.0 12:55 (75) Cannula 04/04/19 98.1 90 18 100/62 99 Nasal 2.0 12:50 (75) Cannula 04/04/19 92 21 105/62 98 Nasal 2.0 12:45 (76) Cannula 04/04/19 92 19 100/61 99 Nasal 2.0 12:40 (74) Cannula 04/04/19 92 20 99/61 (74) 97 Nasal 2.0 12:35 Cannula 04/04/19 90 18 101/65 96 Nasal 2.0 12:30 (77) Cannula 04/04/19 90 20 103/55 97 Nasal 2.0 12:25 (71) Cannula 04/04/19 94 19 100/52 89 Nasal 2.0 12:20 (68) Cannula 04/04/19 90 15 94/54 (67) 100 Nasal 2.0 12:14 Cannula 04/04/19 94 20 100/52 89 Nasal 2.0 12:09 (68) Cannula 04/04/19 98.0 94 19 106/59 100 Nasal 2.0 12:04 (75) Cannula 04/04/19 97.3 104 16 109/61 99 Room Air 08:52 (77) Vital Signs Date Temp Pulse Resp B/P (MAP) Pulse Ox O2 O2 Flow FiO2 Time Delivery Rate 04/06/19 97.4 88 18 115/67 95 Room Air 08:38 (83) 04/05/19 2.0 08:25 Intake and Output 04/05/19 04/05/19 04/06/19 1515:00 23:00 07:00 IntakeIntake Total 640 ml 600 ml BalanceBalance 640 ml 600 ml Constitutional: alert, oriented, obese Psych: no complaints, nl mood/affect Respiratory: clear to auscultation, normal air movement Cardiovascular: regular rate and rhythm, nl pulses; No edema, No murmurs/extra sounds, No rub Gastrointestinal: soft, nl liver, spleen, non-tender, bowel sounds; No mass, No rebound or guarding Musculoskeletal: nl extremities to inspection Extremities: normal pulses; No cyanosis, No clubbing, No edema Neurological: ANODIC OPERATOR II-XII intact, nl mental status, nl speech, nl strength Results Result Diagram: 04/05/19 1659 Results 24hrs Laboratory Tests Test 04/05/19 16:59 White Blood Count 12.6 H Red Blood Count 3.85 L Hemoglobin 10.7 L Hematocrit 33.8 L Mean Corpuscular Volume 87.8 Mean Corpuscular Hemoglobin 27.8 L Mean Corpuscular Hemoglobin Concent 31.7 L Red Cell Distribution Width 14.7 H Platelet Count 362 Mean Platelet Volume 10.1 Immature Granulocytes % 0.400 Neutrophils % 79.1 H Lymphocytes % 11.6 L Monocytes % 8.6 Eosinophils % 0.1 Basophils % 0.2 Nucleated Red Blood Cells % 0.0 Immature Granulocytes # 0.050 H Neutrophils # 9.9 H Lymphocytes # 1.5 Monocytes # 1.1 H Eosinophils # 0.0 Basophils # 0.0 Nucleated Red Blood Cells # 0.0 Medications Medication Current Medications Albuterol (Ventolin Hfa) 2 puff Q4 INH ; Start 04/04/19 at 13:00 Benazepril HCl (Lotensin) 20 mg QHS PO Last administered on 04/05/19 21:21; Admin Dose 20 MG; Start 04/04/19 at 21:00 Duloxetine HCl (Cymbalta) 90 mg DAILY PO Last administered on 04/06/19 08:28; Admin Dose 90 MG; Start 04/05/19 at 09:00 Levothyroxine Sodium (Synthroid) 150 mcg BEFORE BREAKFAST PO Last administered on 04/06/19 06:21; Admin Dose 150 MCG; Start 04/05/19 at 07:00 Metformin HCl (Glucophage) 500 mg WITH BREAKFAST DINNE PO Last administered on 04/06/19 08:28; Admin Dose 500 MG; Start 04/04/19 at 17:55 Montelukast Sodium (Singulair) 10 mg QHS PO Last administered on 04/05/19at 21:09; Admin Dose 10 MG; Start 04/04/19 at 21:00 Spironolactone (Aldactone) 50 mg BID PO Last administered on 04/06/19 08:28; Admin Dose 50 MG; Start 04/04/19 at 21:00 Loratadine (Claritin) 10 mg DAILY PO Last administered on 04/06/19 08:29; Admin Dose 10 MG; Start 04/05/19 at 09:00 Guaifenesin (Mucinex) 1,200 mg BID PO Last administered on 04/06/19 08:29; Admin Dose 1,200 MG; Start 04/04/19 at 21:00 Senna/Docusate Sodium (Senokot-S) 1 tab BID PO Last administered on 04/05/19 08:35; Admin Dose 1 TAB; Start 04/04/19 at 21:00 Simethicone (Mylicon) 80 mg TID PRN PO .GAS; Start 04/04/19 at 12:00 Magnesium Hydroxide (Milk Of Mag) 30 ml BID PRN PO .CONSTIPATION; Start at 12:00 Magnesium Hydroxide (Milk Of Mag) 30 ml HS PO ; Start 04/06/19 at 21:00 Oxycodone HCl (Roxicodone) 15 mg Q4H PRN PO .PAIN; Start 04/04/19 at 12:00 Oxycodone HCl (Roxicodone) 10 mg Q4H PRN PO .PAIN Last administered on 04/05/19at 17:10; Admin Dose 10 MG; Start 04/04/19 at 12:00 Oxycodone HCl (Roxicodone) 5 mg Q4H PRN PO .PAIN Last administered on 04/06/19at 09:54; Admin Dose 5 MG; Start 04/04/19 at 12:00 Hydromorphone HCl (Dilaudid) 1 mg Q4H PRN IV .BREAKTHROUGH PAIN; Start 04/04/19 at 12:00 Ondansetron HCl (Zofran Inj) 4 mg Q6H PRN IV NAUSEA/VOMITING Last administered on 04/04/19at 20:05; Admin Dose 4 MG; Start 04/04/19 at 12:00 Diphenhydramine HCl (Benadryl) 25 mg Q6H PRN IV .PRURITUS; Start 04/04/19 at 12:00 IV Flush (NS 3 ml) 3 ml per protocol IV ; Start 04/04/19 at 12:00 Aspirin (Ecotrin) 325 mg DAILY PO ; Start 04/05/19 at 09:00 Morphine Sulfate (morphine) 3 mg Q3H PRN IV SEVERE PAIN LEVEL 7-10 Last administered on 04/04/19at 19:38; Admin Dose 3 MG; Start 04/04/19 at 13:00 Miscellaneous Information 1 ea NOTE XX ; Start 04/04/19 at 13:30 Glucose (Glutose) 15 gm Q15M PRN PO DECREASED GLUCOSE; Start 04/04/19 at 13:30 Glucose (Glutose) 22.5 gm Q15M PRN PO DECREASED GLUCOSE; Start 04/04/19 at 13:30 Dextrose (D50w Syringe) 25 ml Q15M PRN IV DECREASED GLUCOSE; Start 04/04/19 at 13:30 Dextrose (D50w Syringe) 50 ml Q15M PRN IV DECREASED GLUCOSE; Start 04/04/19 at 13:30 Glucagon (Glucagen) 1 mg Q15M PRN IM DECREASED GLUCOSE; Start 04/04/19 at 13:30 Glucose (Glutose) 15 gm Q15M PRN BUCCAL DECREASED GLUCOSE; Start 04/04/19 at 13:30 Doxycycline Hyclate (Vibramycin) 100 mg DAILY PO Last administered on 04/06/19 08:29; Admin Dose 100 MG; Start 04/05/19 at 09:00 Pregabalin (Lyrica) 50 mg QID PO Last administered on 04/06/19 08:28; Admin Dose 50 MG; Start 04/04/19 at 17:00 Desipramine HCl (Norpramin) 20 mg HS PO Last administered on 04/05/19at 21:34; Admin Dose 20 MG; Start 04/04/19 at 21:00 Apixaban (Eliquis) 2.5 mg BID PO Last administered on 04/06/19 08:28; Admin Dose 2.5 MG; Start 04/05/19 at 09:00 Alprazolam (Xanax) 0.5 mg HS PO Last administered on 04/05/19 21:23; Admin Dose 0.5 MG; Start 04/05/19 at 21:00 Patient Own Medication 1 ea BID@0630,1700 PO Last administered on 04/06/19 06:21; Admin Dose 1 EA; Start 04/05/19 at 10:00 Miscellaneous Information Patients own medicat... BID@10,16 XX Last administered on 04/06/19at 10:14; Admin Dose 1 EA; Start 04/05/19 at 16:00 Rizatriptan (Maxalt) 10 mg BID PRN PO MIGRAINE; Start 04/05/19 at 12:30 [place] MCFARLAND MD Apr 06, 2019 11:08
[2019-04-06 15:24] VITALS: BP 126/66; PULSE 98; RESP 18
[2019-04-06 19:10] VITALS: BP 119/68; PULSE 95; RESP 20
[2019-04-06] MEDS ORDERED: MAGNESIUM HYDROXIDE 30ML CUP PO SCH (21:00)
[2019-04-06] MEDS: ALPRAZOLAM 0.5 MG TAB PO SCH (21:27)
[2019-04-06] MEDS: MONTELUKAST 10 MG TAB PO SCH (21:30)
[2019-04-06] MEDS: DESIPRAMINE 10 MG PO SCH (21:32)
[2019-04-06] MEDS: BENAZEPRIL 20 MG TAB PO SCH (21:36)
[2019-04-07] MEDS: ALBUTEROL HFA 8 GM INHALER INH SCH ×4 (01:00→13:00)
[2019-04-07] MEDS: oxyCODONE 5 MG TAB PO PRN (01:41)
[2019-04-07 02:00] VITALS: BP 107/64; PULSE 87; RESP 18
[2019-04-07] MEDS: LEVOTHYROXINE 150 MCG TAB PO SCH (05:52)
[2019-04-07] MEDS: ALPRAZOLAM 1 MG PO SCH (05:52)
[2019-04-07 07:51] VITALS: BP 129/66; PULSE 92; RESP 18
--- NOTE | 2019-04-07 08:13 | PN ---
Date/Time of Note Date/Time of Note DATE: 04/07/19 TIME: 08:12 Subjective Clinically, the patient is doing well with respect to her wound and her ambulation. She is having a difficult time accepting going home, even though she is stable from the medical perspective. Her mood is variable and unpredictable as documented by the nursing staff. We are arranging for extra equipment, that and apparently it was attempted to deliver it yesterday. Once again, and went through the protocol with her. She can fully weight-bear and go upstairs one step at a time as has been shown to her by her physical therapy people that worked with her here in the hospital. She is still arguing the point that some of the postop instructions initially said no stairs. I reiterated to her that as the surgeon that performed the surgery, she may walk upstairs once per day. Objective Vitals Vital Signs Date Temp Pulse Resp B/P (MAP) Pulse Ox O2 O2 Flow FiO2 Time Delivery Rate 04/07/19 98.1 92 18 129/66 92 07:51 (87) 04/06/19 Room Air 15:24 04/05/19 2.0 08:25 Intake and Output 04/06/19 04/06/19 04/07/19 1515:00 23:00 07:00 IntakeIntake Total 440 ml 480 ml 420 ml BalanceBalance 440 ml 480 ml 420 ml Her wound is clean and dry. She is neurologically intact. There are no signs of DVT. Her strength is intact. Results Result Diagram: 04/05/19 1659 04/07/19 0424 Medications Medications Current Medications Albuterol (Ventolin Hfa) 2 puff Q4 INH ; Start 04/04/19 at 13:00 Benazepril HCl (Lotensin) 20 mg QHS PO Last administered on 04/06/19at 21:36; Admin Dose 20 MG; Start 04/04/19 at 21:00 Duloxetine HCl (Cymbalta) 90 mg DAILY PO Last administered on 04/06/19at 08:28; Admin Dose 90 MG; Start 04/05/19 at 09:00 Levothyroxine Sodium (Synthroid) 150 mcg BEFORE BREAKFAST PO Last administered on 04/07/19at 05:52; Admin Dose 150 MCG; Start 04/05/19 at 07:00 Metformin HCl (Glucophage) 500 mg WITH BREAKFAST DINNE PO Last administered on 04/06/19 18:15; Admin Dose 500 MG; Start 04/04/19 at 17:55 Montelukast Sodium (Singulair) 10 mg QHS PO Last administered on 04/06/19 21:30; Admin Dose 10 MG; Start 04/04/19 at 21:00 Spironolactone (Aldactone) 50 mg BID PO Last administered on 04/06/19 21:26; Admin Dose 50 MG; Start 04/04/19 at 21:00 Loratadine (Claritin) 10 mg DAILY PO Last administered on 04/06/19 08:29; Admin Dose 10 MG; Start 04/05/19 at 09:00 Guaifenesin (Mucinex) 1,200 mg BID PO Last administered on 04/06/19 21:30; Admin Dose 1,200 MG; Start 04/04/19 at 21:00 Senna/Docusate Sodium (Senokot-S) 1 tab BID PO Last administered on 04/05/19at 08:35; Admin Dose 1 TAB; Start 04/04/19 at 21:00 Simethicone (Mylicon) 80 mg TID PRN PO .GAS; Start 04/04/19 at 12:00 Magnesium Hydroxide (Milk Of Mag) 30 ml BID PRN PO .CONSTIPATION; Start 03/17 at 12:00 Magnesium Hydroxide (Milk Of Mag) 30 ml HS PO ; Start 04/06/19 at 21:00 Oxycodone HCl (Roxicodone) 15 mg Q4H PRN PO .PAIN; Start 04/04/19 at 12:00 Oxycodone HCl (Roxicodone) 10 mg Q4H PRN PO .PAIN Last administered on 04/05/19at 17:10; Admin Dose 10 MG; Start 04/04/19 at 12:00 Oxycodone HCl (Roxicodone) 5 mg Q4H PRN PO .PAIN Last administered on 04/07/19at 01:41; Admin Dose 5 MG; Start 04/04/19 at 12:00 Hydromorphone HCl (Dilaudid) 1 mg Q4H PRN IV .BREAKTHROUGH PAIN; Start 04/04/19 at 12:00 Ondansetron HCl (Zofran Inj) 4 mg Q6H PRN IV NAUSEA/VOMITING Last administered on 04/04/19at 20:05; Admin Dose 4 MG; Start 04/04/19 at 12:00 Diphenhydramine HCl (Benadryl) 25 mg Q6H PRN IV .PRURITUS; Start 04/04/19 at 12:00 IV Flush (NS 3 ml) 3 ml per protocol IV ; Start 04/04/19 at 12:00 Aspirin (Ecotrin) 325 mg DAILY PO ; Start 04/05/19 at 09:00 Morphine Sulfate (morphine) 3 mg Q3H PRN IV SEVERE PAIN LEVEL 7-10 Last administered on 04/04/19at 19:38; Admin Dose 3 MG; Start 04/04/19 at 13:00 Miscellaneous Information 1 ea NOTE XX ; Start 04/04/19 at 13:30 Glucose (Glutose) 15 gm Q15M PRN PO DECREASED GLUCOSE; Start 04/04/19 at 13:30 Glucose (Glutose) 22.5 gm Q15M PRN PO DECREASED GLUCOSE; Start 04/04/19 at 13:30 Dextrose (D50w Syringe) 25 ml Q15M PRN IV DECREASED GLUCOSE; Start 04/04/19 at 13:30 Dextrose (D50w Syringe) 50 ml Q15M PRN IV DECREASED GLUCOSE; Start 04/04/19 at 13:30 Glucagon (Glucagen) 1 mg Q15M PRN IM DECREASED GLUCOSE; Start 04/04/19 at 13:30 Glucose (Glutose) 15 gm Q15M PRN BUCCAL DECREASED GLUCOSE; Start 04/04/19 at 13:30 Doxycycline Hyclate (Vibramycin) 100 mg DAILY PO Last administered on 04/06/19at 08:29; Admin Dose 100 MG; Start 04/05/19 at 09:00 Pregabalin (Lyrica) 50 mg QID PO Last administered on 04/06/19at 21:28; Admin Dose 50 MG; Start 04/04/19 at 17:00 Desipramine HCl (Norpramin) 20 mg HS PO Last administered on 04/06/19at 21:32; Admin Dose 20 MG; Start 04/04/19 at 21:00 Apixaban (Eliquis) 2.5 mg BID PO Last administered on 04/06/19at 21:35; Admin Dose 2.5 MG; Start 04/05/19 at 09:00 Alprazolam (Xanax) 0.5 mg HS PO Last administered on 04/06/19at 21:27; Admin Dose 0.5 MG; Start 04/05/19 at 21:00 Patient Own Medication 1 ea BID@0630,1700 PO Last administered on 04/07/19at 05:52; Admin Dose 1 EA; Start 04/05/19 at 10:00 Miscellaneous Information Patients own medicat... BID@10,16 XX Last administered on 04/06/19at 15:21; Admin Dose 1 EA; Start 04/05/19 at 16:00 Rizatriptan (Maxalt) 10 mg BID PRN PO MIGRAINE Last administered on 04/07/19 06:20; Admin Dose 10 MG; Start 04/05/19 at 12:30 VTE Prophylaxis Risk score (from Nsg)>0 risk: 5 SCD applied (from Ns): Yes Lines/Catheters IV Catheter Type: Saline Lock Polo in Place: No Assessment/Plan Assessment/Plan Assessment: Status post abductor repair in a patient with significant a significant medical history and significant obesity, that is precluding a quick recovery. Plan: We will discharge her with home care and the appropriate equipment at home. She will follow-up in 2 weeks. JESSIE ALLEN MD Apr 07, 2019 08:13
--- NOTE | 2019-04-07 08:14 | DS ---
Date/Time of Note Date/Time of Note DATE: 04/07/19 TIME: 08:13 Discharge Summary Admission/Discharge Info Admit Date/Time Apr 04, 2019 at 06:30 Discharge Date/Time 04/07/2019 Discharge Diagnosis Abductor tear Patient Condition: Good Hospital Course Patient was admitted and underwent an uncomplicated procedure. She had a difficult time ambulating as a result of multiple medical concerns as well as psychiatric past disorders. She is to be discharged home with home health care and a variety of equipment for support. She will follow-up in the office in 2 weeks. Home Meds Reported Medications Doxycycline Hyclate* (Doxycycline Hyclate*) 100 Mg Tablet.dr, 100 MG PO DAILY, TAB 04/04/19 Spironolactone* (Aldactone*) 50 Mg Tablet, 50 MG PO BID, #60 TAB 04/04/19 Metformin Hcl* (Metformin Hcl*) 500 Mg Tablet, 500 MG PO WITH BREAKFAST DINNE, #60 TAB 04/04/19 Benazepril Hcl* (Benazepril Hcl*) 20 Mg Tablet, 20 MG PO QHS, #60 TAB 04/04/19 Rizatriptan Benzoate (Rizatriptan Benzoate) 10 Mg Tablet, 10 MG PO BID PRN for MIGRAINE, TAB may repeat after 2 hours, MAX 30 mg/24 hour 04/01/19 Albuterol Sulfate* (Proair HFA*) 8.5 Gm Hfa.aer.ad, 2 PUFF INH Q4, #1 INHALER 04/01/19 Cetirizine Hcl* (Zyrtec*) 10 Mg Capsule, 10 MG PO BID, TAB 04/01/19 Guaifenesin (Mucinex) 1,200 Mg Tab.er.12h, 1200 MG PO BID, TAB 04/01/19 Desipramine Hcl* (Desipramine Hcl*) 50 Mg Tablet, 20 MG PO HS, TAB 04/01/19 Alprazolam* (Alprazolam*) 0.5 Mg Tablet, 0.5 MG PO BID, TAB 04/01/19 Montelukast Sodium* (Montelukast Sodium*) 10 Mg Tablet, 10 MG PO QHS, #30 TAB 04/01/19 Pregabalin* (Lyrica*) 50 Mg Capsule, 50 MG PO QID, CAP 04/01/19 Alprazolam (Alprazolam XR) 1 Mg Tab.sr.24h, 1 MG PO BID, TAB.SA 04/01/19 Duloxetine Hcl* (Duloxetine Hcl*) 60 Mg Capsule.dr, 90 MG PO DAILY, #30 CAP 04/01/19 Levothyroxine Sodium* (Synthroid*) 150 Mcg Tablet, 150 MCG PO BEFORE BREAKFAST, #30 TAB 04/01/19 Discontinued Reported Medications Benazepril Hcl* (Benazepril Hcl*) 20 Mg Tablet, 20 MG PO DAILY, #30 TAB 04/01/19 Spironolactone* (Spironolactone*) 100 Mg Tablet, 50 MG PO BID, TAB 04/01/19 Metformin Hcl* (Metformin Hcl*) 500 Mg Tablet, 500 MG PO WITH BREAKFAST PRN for BID, #30 TAB 04/01/19 [Doxycycline] No Conflict Check, 100 MG PO DAILY 04/01/19 Follow-up Plan 2 weeks in the office Primary Care Provider Jan Richmond MD Pending Labs Laboratory Tests Test 04/07/19 04:24 Blood Urea Nitrogen 13 mg/dl (7-20) Creatinine 0.76 mg/dl (0.44-1.00) JESSIE ALLEN MD Apr 07, 2019 08:14
[2019-04-07] MEDS ORDERED: APIX5TAB PO (08:29)
[2019-04-07] MEDS: DOXYCYCLINE 100 MG TAB PO SCH (08:57)
[2019-04-07] MEDS: DULOXETINE 30 MG CAP DR PO SCH (08:58)
[2019-04-07] MEDS: SENNA/DOCUSATE NA (8.6MG/50MG) TAB PO SCH (09:00)
[2019-04-07] MEDS: metFORMIN 500 MG TAB PO SCH (09:01)
[2019-04-07] MEDS: APIXABAN 5 MG TABLET PO SCH (09:08)
[2019-04-07] MEDS: LORATADINE 10 MG TAB PO SCH (09:11)
[2019-04-07] MEDS: SPIRONOLACTONE 50 MG TAB PO SCH (09:11)
[2019-04-07] MEDS: ASPIRIN (EC) 325 MG TAB PO SCH (09:11)
[2019-04-07] MEDS: GUAIFENESIN LA 600 MG TABSR PO SCH (09:12)
[2019-04-07] MEDS: PREGABALIN 50 MG CAP PO SCH ×2 (09:12→13:36)
--- NOTE | 2019-04-07 09:34 | CONS ---
Assessment/Plan Assessment/Plan Problems: (1) Hypothyroidism Status: Chronic Comment: Cont. LT4 (2) Major depressive disorder, recurrent, in full remission Status: Chronic Comment: Cont. desipramine and duloxetine (3) Anxiety disorder Status: Chronic Comment: Cont. duloxetine, long-acting alprazolam and IR alprazolam as needed (4) Allergic rhinitis Status: Chronic Comment: Cont. montelukast, loratadine, guaifenesin (5) Mild intermittent asthma, uncomplicated Status: Chronic Comment: Cont. montelukast, prn albuterol (6) Essential (primary) hypertension Status: Chronic Comment: BP controlled. Cont. benazepril (7) Migraine without aura and without status migrainosus, not intractable Status: Chronic Comment: Rizatriptan prn (8) Hidradenitis suppurativa Status: Chronic Comment: Cont. spironolactone, doxycycline (9) Androgen excess Status: Chronic Comment: Cont. spironolactone, metformin (10) Hypercoagulable state Status: Chronic Comment: Cont. 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 Eliquis per heme (12) Low back pain Status: Chronic Comment: Cont. lyrica (13) Tear of gluteus medius tendon Status: Resolved (14) Trochanteric bursitis of right hip Status: Resolved (15) Aftercare following surgery of the musculoskeletal system Status: Acute Comment: POD#3 and doing well. Plan d/c home today w/ DME and HHPT as requested. Expect pt. to do well after d/c. Consultation Date/Type/Reason Admit Date/Time Apr 04, 2019 at 06:30 Initial Consult Date 04/04/19 Type of Consult Medicine Reason for Consultation Medical Management Requesting Provider: JESSIE ALLEN MD Date/Time of Note DATE: 04/07/19 TIME: 09:28 24 HR Interval Summary Constitutional: no complaints, improved (likely d/c today w/ HHPT, hospital bed, and w/c) Detailed Summary Respiratory: no complaints Cardiovascular: no complaints Gastrointestinal: no complaints Genitourinary: no complaints Musculoskeletal: no complaints Neurologic: no complaints Exam/Review of Systems Exam Vitals VS - Last 72 Hours, by Label Date Temp Pulse Resp B/P (MAP) Pulse Ox O2 O2 Flow FiO2 Time Delivery Rate 04/07/19 98.1 92 18 129/66 92 07:51 (87) 04/07/19 98.4 87 18 107/64 90 02:00 (78) 04/06/19 98.1 95 20 119/68 93 19:10 (85) 04/06/19 97.7 98 18 126/66 96 Room Air 15:24 (86) 04/06/19 97.4 88 18 115/67 95 Room Air 08:38 (83) 04/05/19 98.3 96 20 135/68 98 Nasal 20:00 (90) Cannula 04/05/19 98.4 95 18 114/64 98 Nasal 15:08 (81) Cannula 04/05/19 Nasal 2.0 08:25 Cannula 04/05/19 97.7 87 20 106/58 99 Nasal 08:10 (74) Cannula 04/04/19 98.6 100 20 108/61 96 Nasal 23:35 (77) Cannula 04/04/19 98.6 110 17 104/59 99 Nasal 19:54 (74) Cannula 04/04/19 98.1 86 18 105/67 99 Nasal 2.0 18:00 (80) Cannula 04/04/19 98.1 88 16 102/66 99 Nasal 2.0 17:00 (78) Cannula 04/04/19 98.1 89 20 100/63 99 Nasal 2.0 16:00 (75) Cannula 04/04/19 98.0 91 18 103/62 100 Nasal 2.0 15:00 (76) Cannula 04/04/19 98.0 93 18 99/60 (73) 100 Nasal 2.0 14:30 Cannula 04/04/19 98.0 92 18 93/57 (69) 100 Nasal 2.0 14:00 Cannula 04/04/19 97.9 13:54 04/04/19 98.0 92 18 100/70 100 Nasal 2.0 13:45 (80) Cannula 04/04/19 98.0 94 18 98/58 (71) 100 Nasal 2.0 13:30 Cannula 04/04/19 98.0 92 18 102/60 100 Nasal 2.0 13:15 (74) Cannula 04/04/19 98.0 95 18 108/60 100 Nasal 2.0 13:00 (76) Cannula 04/04/19 Nasal 2.0 13:00 Cannula 04/04/19 88 21 105/60 98 Nasal 2.0 12:55 (75) Cannula 04/04/19 98.1 90 18 100/62 99 Nasal 2.0 12:50 (75) Cannula 04/04/19 92 21 105/62 98 Nasal 2.0 12:45 (76) Cannula 04/04/19 92 19 100/61 99 Nasal 2.0 12:40 (74) Cannula 04/04/19 92 20 99/61 (74) 97 Nasal 2.0 12:35 Cannula 04/04/19 90 18 101/65 96 Nasal 2.0 12:30 (77) Cannula 04/04/19 90 20 103/55 97 Nasal 2.0 12:25 (71) Cannula 04/04/19 94 19 100/52 89 Nasal 2.0 12:20 (68) Cannula 04/04/19 90 15 94/54 (67) 100 Nasal 2.0 12:14 Cannula 04/04/19 94 20 100/52 89 Nasal 2.0 12:09 (68) Cannula 04/04/19 98.0 94 19 106/59 100 Nasal 2.0 12:04 (75) Cannula Vital Signs Date Temp Pulse Resp B/P (MAP) Pulse Ox O2 O2 Flow FiO2 Time Delivery Rate 04/07/19 98.1 92 18 129/66 92 07:51 (87) 04/06/19 Room Air 15:24 04/05/19 2.0 08:25 Intake and Output 04/06/19 04/06/19 04/07/19 1515:00 23:00 07:00 IntakeIntake Total 440 ml 480 ml 660 ml BalanceBalance 440 ml 480 ml 660 ml Constitutional: alert, oriented, obese Psych: no complaints, nl mood/affect Respiratory: clear to auscultation, normal air movement Cardiovascular: regular rate and rhythm, nl pulses; No edema, No murmurs/extra sounds, No rub Gastrointestinal: soft, nl liver, spleen, non-tender, bowel sounds; No mass, No rebound or guarding Musculoskeletal: nl extremities to inspection Extremities: normal pulses; No cyanosis, No clubbing, No edema Neurological: [employer] II-XII intact, nl mental status, nl speech, nl strength Results Result Diagram: 04/05/19 1659 04/07/19 0424 Results 24hrs Laboratory Tests Test 04/07/19 04:24 Blood Urea Nitrogen 13 Creatinine 0.76 Medications Medication Current Medications Albuterol (Ventolin Hfa) 2 puff Q4 INH ; Start 04/04/19 at 13:00 Benazepril HCl (Lotensin) 20 mg QHS PO Last administered on 04/06/19at 21:36; A dmin Dose 20 MG; Start 04/04/19 at 21:00 Duloxetine HCl (Cymbalta) 90 mg DAILY PO Last administered on 04/07/19at 08:58; Admin Dose 90 MG; Start 04/05/19 at 09:00 Levothyroxine Sodium (Synthroid) 150 mcg BEFORE BREAKFAST PO Last administered on 04/07/19 05:52; Admin Dose 150 MCG; Start 04/05/19 at 07:00 Metformin HCl (Glucophage) 500 mg WITH BREAKFAST DINNE PO Last administered on 04/07/19 09:01; Admin Dose 500 MG; Start 04/04/19 at 17:55 Montelukast Sodium (Singulair) 10 mg QHS PO Last administered on 04/06/19at 21:30; Admin Dose 10 MG; Start 04/04/19 at 21:00 Spironolactone (Aldactone) 50 mg BID PO Last administered on 04/07/19 09:11; Admin Dose 50 MG; Start 04/04/19 at 21:00 Loratadine (Claritin) 10 mg DAILY PO Last administered on 04/07/19 09:11; Admin Dose 10 MG; Start 04/05/19 at 09:00 Guaifenesin (Mucinex) 1,200 mg BID PO Last administered on 04/07/19 09:12; Admin Dose 1,200 MG; Start 04/04/19 at 21:00 Senna/Docusate Sodium (Senokot-S) 1 tab BID PO Last administered on 04/05/19 08:35; Admin Dose 1 TAB; Start 04/04/19 at 21:00 Simethicone (Mylicon) 80 mg TID PRN PO .GAS; Start 04/04/19 at 12:00 Magnesium Hydroxide (Milk Of Mag) 30 ml BID PRN PO .CONSTIPATION; Start 04/04/19 at 12:00 Magnesium Hydroxide (Milk Of Mag) 30 ml HS PO ; Start 04/06/19 at 21:00 Oxycodone HCl (Roxicodone) 15 mg Q4H PRN PO .PAIN; Start 04/04/19 at 12:00 Oxycodone HCl (Roxicodone) 10 mg Q4H PRN PO .PAIN Last administered on 04/05/19at 17:10; Admin Dose 10 MG; Start 04/04/19 at 12:00 Oxycodone HCl (Roxicodone) 5 mg Q4H PRN PO .PAIN Last administered on 04/07/19at 01:41; Admin Dose 5 MG; Start 04/04/19 at 12:00 Hydromorphone HCl (Dilaudid) 1 mg Q4H PRN IV .BREAKTHROUGH PAIN; Start 04/04/19 at 12:00 Ondansetron HCl (Zofran Inj) 4 mg Q6H PRN IV NAUSEA/VOMITING Last administered on 04/04/19at 20:05; Admin Dose 4 MG; Start 04/04/19 at 12:00 Diphenhydramine HCl (Benadryl) 25 mg Q6H PRN IV .PRURITUS; Start 04/04/19 at 12:00 IV Flush (NS 3 ml) 3 ml per protocol IV ; Start 04/04/19 at 12:00 Aspirin (Ecotrin) 325 mg DAILY PO Last administered on 04/07/19at 09:11; Admin Dose 325 MG; Start 04/05/19 at 09:00 Morphine Sulfate (morphine) 3 mg Q3H PRN IV SEVERE PAIN LEVEL 7-10 Last administered on 04/04/19at 19:38; Admin Dose 3 MG; Start 04/04/19 at 13:00 Miscellaneous Information 1 ea NOTE XX ; Start 04/04/19 at 13:30 Glucose (Glutose) 15 gm Q15M PRN PO DECREASED GLUCOSE; Start 04/04/19 at 13:30 Glucose (Glutose) 22.5 gm Q15M PRN PO DECREASED GLUCOSE; Start 04/04/19 at 13: 30 Dextrose (D50w Syringe) 25 ml Q15M PRN IV DECREASED GLUCOSE; Start 04/04/19 at 13:30 Dextrose (D50w Syringe) 50 ml Q15M PRN IV DECREASED GLUCOSE; Start 04/04/19 at 13:30 Glucagon (Glucagen) 1 mg Q15M PRN IM DECREASED GLUCOSE; Start 04/04/19 at 13:30 Glucose (Glutose) 15 gm Q15M PRN BUCCAL DECREASED GLUCOSE; Start 04/04/19 at 13:30 Doxycycline Hyclate (Vibramycin) 100 mg DAILY PO Last administered on 04/07/19 08:57; Admin Dose 100 MG; Start 04/05/19 at 09:00 Pregabalin (Lyrica) 50 mg QID PO Last administered on 04/07/19 09:12; Admin Dose 50 MG; Start 04/04/19 at 17:00 Desipramine HCl (Norpramin) 20 mg HS PO Last administered on 04/06/19 21:32; Admin Dose 20 MG; Start 04/04/19 at 21:00 Apixaban (Eliquis) 2.5 mg BID PO Last administered on 04/07/19 09:08; Admin Dose 2.5 MG; Start 04/05/19 at 09:00 Alprazolam (Xanax) 0.5 mg HS PO Last administered on 04/06/19 21:27; Admin Do se 0.5 MG; Start 04/05/19 at 21:00 Patient Own Medication 1 ea BID@0630,1700 PO Last administered on 04/07/19 05:52; Admin Dose 1 EA; Start 04/05/19 at 10:00 Miscellaneous Information Patients own medicat... BID@10,16 XX Last administered on 04/06/19 15:21; Admin Dose 1 EA; Start 04/05/19 at 16:00 Rizatriptan (Maxalt) 10 mg BID PRN PO MIGRAINE Last administered on 04/07/19 06:20; Admin Dose 10 MG; Start 04/05/19 at 12:30 [place] MCFARLAND MD Apr 07, 2019 09:34
== END 2019-04-07 15:18 | disposition home or self-care (01) | DRG 501 ==
LOC: REC 06:30 → MS1 12:58 → EDSTATUS 14:00
PROVIDERS: ADMIT Orthopaedic Surgery; ATTEND Orthopaedic Surgery
PROC: 0LMJ0ZZ Reattachment of Right Hip Tendon, Open Approach (ICD-10-PCS; 2019-04-04)
PROC: 0MTL0ZZ Resection of Right Hip Bursa and Ligament, Open Approach (ICD-10-PCS; principal; 2019-04-04 09:00)
DX: M70.61 Trochanteric bursitis, right hip (principal); D68.59 Other primary thrombophilia; S76.011A Strain of muscle, fascia and tendon of right hip, initial encounter; I10 Essential (primary) hypertension; E78.5 Hyperlipidemia, unspecified; J45.909 Unspecified asthma, uncomplicated
CPT/HCPCS: 82565; 84520; 85025; 86999; 97116; 97163; 97530; J0171; J0735; J1100; J1200; J1885; J2175; J2250; J2270; J2274; J2370; J2405; J2765; J3010; J3370; J7120